=== PATIENT | male | born 1955 | race Caucasian/White ===

== ENCOUNTER 2019-01-10 10:44 | Inpatient (IN) | payer OTHER ==
[~2019-01-10] VITALS: Ht 170.2 cm; Wt 68.1 kg
[2019-01-10 10:47] VITALS: Ht 170.2 cm; Wt 68.1 kg
[2019-01-10] MEDS ORDERED: THIAMINE 100 MG TAB PO STA (11:02)
[2019-01-10] MEDS ORDERED: SOD CHLORIDE 0.9% 1,000 ML IV STA (11:02)
[2019-01-10] MEDS ORDERED: LORAZEPAM 2 MG INJ IV STA (11:02)
[2019-01-10] MEDS ORDERED: MULTIVITAMINS 10 ML, THIAMINE 100 MG, FOLIC ACID 1 MG, MAGNESIUM SULFATE 2 GM in SOD CH... IV ONE ×2 (11:30→16:30)
[2019-01-10] MEDS ORDERED: IBUP1TAB13 PO (12:02)
--- NOTE | 2019-01-10 12:03 | ERD ---
ER Documentation Chief Complaint Chief Complaint juan c @0230 this am, no prescribed medication HPI 63-year-old gentleman who presents to the emergency room with hallucinations. The patient has a history of alcohol abuse issues. He states that he has not been drinking for 3 days. The patient is having a tremor, agitation and having visual hallucinations at home. He is here with a family member who is concerned about the patient's well-being. The patient is tripping and falling on a more regular basis. He is unsure if he hit his head recently. He does describe some baseline shortness of breath with relation to his COPD but no exacerbation, no productive cough and no chest pressure. ROS All systems reviewed and are negative except as per history of present illness. Medications Home Meds Reported Medications Ibuprofen/Diphenhydramine Cit (Advil Pm Caplet) 1 Each Tablet, 2 EACH PO QHS, TAB 01/10/19 Allergies Allergies: Coded Allergies: No Known Allergy (Unverified , 01/10/19) FmHx Family History: No diabetes Physical Exam Vitals Vital Signs Date Temp Pulse Resp B/P (MAP) Pulse Ox O2 O2 Flow FiO2 Time Delivery Rate 01/10/19 131 18 131/78 99 Room Air 12:46 (95) High Flow 01/10/19 Nasal 12:23 Cannula 01/10/19 98.6 141 18 154/93 95 10:47 (113) Physical Exam General: Tremor, slight agitation, conversive Head: Normocephalic, atraumatic. Eyes: Pupils equally reactive, EOM intact ENT: Moist mucous membranes Neck: Supple, no lymphadenopathy Respiratory: Lungs clear bilaterally, no distress Cardiovascular: Tachycardia, no murmurs, rubs, or gallops Abdominal: Soft, non-tender, non-distended, no peritoneal signs : Deferred MSK: No edema, no unilateral swelling, 5/5 strength Neurologic: Alert and oriented, moving all extremities, normal speech, no focal weakness, no cerebellar signs, no asterixis Skin: No rash Psych: Normal mood Result Diagram: 01/10/19 1112 01/10/19 1112 Results 24 hrs Laboratory Tests Test 01/10/19 11:12 White Blood Count 9.4 10^3/ul Red Blood Count 4.65 10^6/ul Hemoglobin 16.6 g/dl Hematocrit 47.5 % Mean Corpuscular Volume 102.2 fl Mean Corpuscular Hemoglobin 35.7 pg Mean Corpuscular Hemoglobin Concent 34.9 g/dl Red Cell Distribution Width 13.2 % Platelet Count 42 10^3/UL Mean Platelet Volume fl Immature Granulocytes % 0.400 % Neutrophils % 78.3 % Segmented Neutrophils % (Manual) 70 % Band Neutrophils % (Manual) 3 % Lymphocytes % 11.3 % Lymphocytes % (Manual) 19 % Reactive Lymphocytes % (Manual) 1 % Monocytes % 8.8 % Monocytes % (Manual) 6 % Eosinophils % 0.9 % Eosinophils % (Manual) 1 % Basophils % 0.3 % Nucleated Red Blood Cells % 0.0 /100WBC Immature Granulocytes # 0.040 10^3/ul Neutrophils # 7.3 10^3/ul Neutrophils # (Manual) 6.6 10^3/ul Band Neutrophils # 0.2 10^3/ul Lymphocytes (Manual) 1.7 10^3/ul Lymphocytes # 1.1 10^3/ul Reactive Lymphocytes # 0.0 10^3/ul Monocytes # 0.8 10^3/ul Monocytes # (Manual) 0.5 10^3/ul Eosinophils # 0.1 10^3/ul Basophils # 0.0 10^3/ul Nucleated Red Blood Cells # 0.0 10^3/ul Pathologist Review (Hematology) YES Platelet Estimate SIG DECREASED Platelet Morphology Comment @See below Polychromasia 1+ Hypochromasia 1+ Poikilocytosis 1+ Anisocytosis 1+ Macrocytosis 1+ Target Cells 1+ Prothrombin Time 12.8 Sec Prothrombin Time Ratio 1.0 INR International Normalized Ratio 0.95 Activated Partial Thromboplast Time 23.1 Sec Sodium Level 140 mmol/L Potassium Level 4.2 mmol/L Chloride Level 98 mmol/L Carbon Dioxide Level 24 mmol/L Anion Gap 18 Blood Urea Nitrogen 33 mg/dl Creatinine 1.80 mg/dl Est Glomerular Filtrat Rate mL/min 38 mL/min Glucose Level 116 mg/dl Calcium Level 10.3 mg/dl Total Bilirubin 1.6 mg/dl Direct Bilirubin 0.00 mg/dl Indirect Bilirubin 1.6 mg/dl Aspartate Amino Transf (AST/SGOT) 236 IU/L Alanine Aminotransferase (ALT/SGPT) 107 IU/L Alkaline Phosphatase 84 IU/L Total Protein 8.2 g/dl Albumin 4.6 g/dl Globulin 3.60 g/dl Albumin/Globulin Ratio 1.27 Ethyl Alcohol Level < 10.0 mg/dl Current Medications Medications Dose Sig/Peter Start Time Status Last (Trade) Ordered Route PRN Stop Time Admin Dose Reason Admin Lorazepam 1 mg ONCE STAT 01/10/19 DC 01/10/19 (Ativan) IV 11:02 01/10/19 11:02 11:04 Sodium 1,000 ml @ Q1H STAT 01/10/19 DC 01/10/19 Chloride 1,000 mls/hr IV 11:02 01/10/19 11:02 12:01 Thiamine 100 mg ONCE STAT 01/10/19 DC 01/10/19 HCl PO 11:02 01/10/19 11:02 (Vitamin B1) 11:04 1,000 ml @ Q2H ONCE 01/10/19 DC 01/10/19 Multivitamins 500 mls/hr IV 11:30 01/10/19 12:09 10 13:29 ml/Thiamine HCl 100 mg/Folic Acid 1 mg/Magnesium Sulfate 2 gm/ Sodium Chloride Lorazepam 1 mg ONCE ONCE 01/10/19 DC 01/10/19 (Ativan) IV 13:00 01/10/19 12:59 13:01 Lorazepam 1 mg ONCE ONCE 01/10/19 (Ativan) IV 14:00 01/10/19 14:01 Ondansetron 4 mg ER BRIDGE 01/10/19 HCl (Zofran PRN IV 14:00 01/11/19 Inj) NAUSEA/VOMITI 13:59 NG 650 mg ER BRIDGE 01/10/19 Acetaminophen PRN PO 14:00 01/11/19 (Tylenol .MILD PAIN 13:59 Tab) 1-3 OR TEMP Procedures/MDM EKG, MONITORS, & DIAGNOSTIC IMAGING: EKG: I reviewed and interpreted a 12-lead EKG. Rhythm: Sinus tachycardia ST Changes: No contiguous ST segment elevations T waves: No contiguous T wave inversions Impression: [No evidence of acute cardiac ischemia] CT brain: IMPRESSION: 1. No evidence of acute intracranial pathology. 2. Mild volume loss, with minimal chronic small vessel ischemic changes. Chest x-ray: IMPRESSION: Subtle nondisplaced fracture through the posterior lateral right eighth rib. Subsegmental atelectasis in both lungs. Elevated right hemidiaphragm. RPTAT: AA LAB INTERPRETATION: I reviewed the laboratory testing and it shows mild renal insufficiency, slight hyperbilirubinemia and transaminitis consistent with the patient's alcohol abuse MEDICAL DECISION MAKING: The patient presents with clinical signs and symptoms consistent with acute alcohol withdrawal. I am concerned for potentially meeting the threshold of W ernicke's encephalopathy versus delirium tremens because of the patient's hallucinations. Because of the patient's age I do recommend inpatient hospitalization for further treatment including IV hydration, multivitamin, dextrose solution and benzodiazepines. Patient is high risk for complications such as seizure, delirium tremens and decompensation. ER COURSE: * Patient given IV fluids, multivitamin, banana bag, Ativan * The patient has required repeat examinations, repeat dosing of benzodiazepine. This is consistent with the patient's level of withdrawal. He does not require a benzodiazepine drip at this time. He continues to protect his airway. The patient is safe for telemetry admission at this time. Heart rate is still tachycardic in the 120 range but improving with fluids and be nzodiazepine treatment. CONSULTATION: [None] DISPOSITION PLAN: Accepting care team and consultations: I discussed the current laboratory data, diagnostic imaging and emergency care provided. Admitting team: Panel team was notified via [employer] Admitting team indication: Insurance directed Critical Care Note: Total time: 30 minutes Indication/Organ System Threat: Severe alcohol withdrawal with delirium I spent the above amount of critical care time with the patient, not including billable procedures. This included chart review, consultations, repeat bedside evaluations, and titration of appropriate medications to prevent cardiopulmonary or respiratory collapse. Departure Diagnosis: Primary Impression: Acute hyperactive alcohol withdrawal delirium Additional Impressions: Alcohol abuse Acute renal insufficiency Transaminitis Dehydration, moderate Condition: TERESA Pandey MD Jan 10, 2019 12:03
[2019-01-10] MEDS ORDERED: LORAZEPAM 2 MG INJ IV ONE ×2 (13:00→14:00)
[2019-01-10] MEDS ORDERED: ONDANSETRON 4 MG INJ IV PRN ×2 (14:00→15:00)
[2019-01-10] MEDS ORDERED: ACETAMINOPHEN 325 MG TAB PO PRN (14:00)
[2019-01-10] MEDS ORDERED: HALOPERIDOL 5 MG INJ IM ONE (14:30)
[2019-01-10] MEDS ORDERED: DIAZEPAM 5 MG/ML SYG IV ONE ×7 (14:30→18:00)
--- NOTE | 2019-01-10 14:52 | HP ---
Date/Time of Note Date/Time of Note DATE: 01/10/19 TIME: 14:40 Assessment/Plan VTE Prophylaxis SCD applied (from Nsg): Yes Pharmacological prophylaxis: NA/contraindicated Pharm contraindication: low risk/ambulating Lines/Catheters IV Catheter Type (from Nrsg): Saline Lock Assessment/Plan Assessment/Plan 63 yo man presents in alcohol withdrawal #EtOH withdrawal - Last drink 3 days ago, unknown how much was drinking before - Requiring frequent Ativan and Valium IV in the ED - Will continue prn Ativan and start librium taper. - Banana bag x1 - Currently very high benzo requirements, will admit to ICU. #Macrocytosis - Not associated with anemia - Will check folate and B12 #Thrombocytopenia - Likely bone marrow suppression from alcohol use, but other cell lines not suppressed. - Will check abd US for cirrhosis or splenomegaly. #R rib fracture? - Pain control DVT: SCDs GI: None Result Diagram: 01/10/19 1112 01/10/19 1112 HPI/ROS Admit Date/Time Admit Date/Time 10 January 2019 Hx of Present Illness Mr. Joseph is a 63 yo man brought in to the ED for tremors and visual hallucinations. Patient is Haitian speaking but hard to understand and there is no family to provide collateral; so history is limited. He was in his usual state of health until about 3 days ago, when he completely quit drinking. Unclear how much he was drinking prior. For past few days he's had tremors and visual hallucinations. Apparently he has been tripping and falling on a more regular basis. He is unsure if he hit his head recently. He also does report some shortness of breath and possible history of COPD. In the ED he was tachy to 140s, normal sinus. BP 154/93, breathing comfortably room air. Labs notable for thrombocytopenia to 42 and macrocytosis, MCV 102, but no anemia. CXR showed possible R 8th rib fracture, CTH negative. ROS Subjective hx not possible: pt critical PMH/Family/Social Past Medical History Unknown Medications Current Medications Ondansetron HCl (Zofran Inj) 4 mg ER BRIDGE PRN IV NAUSEA/VOMITING; Start 01/10 at 14:00; Stop 01/11/19 at 13:59 Acetaminophen (Tylenol Tab) 650 mg ER BRIDGE PRN PO .MILD PAIN 1-3 OR TEMP; Start 01/10/19 at 14:00; Stop 01/11/19 at 13:59 Sodium Chloride 1,000 ml @ 80 mls/hr [id number] IV ; Start 01/10/19 at 14:32; Status UNV IV Flush (NS 3 ml) 3 ml PER PROTOCOL IV ; Start 01/10/19 at 15:00; Status UNV Ondansetron HCl (Zofran Inj) 4 mg Q6H PRN IV NAUSEA/VOMITING; Start 01/10/19 at 15:00; Status UNV Acetaminophen (Tylenol Tab) 650 mg Q6H PRN PO .PAIN 1-3 OR TEMP; Start 01/10/19 at 15:00; Status UNV Pantoprazole (Protonix Tab) 40 mg DAILY@06 PO ; Start 01/11/19 at 06:00; Status UNV Lorazepam (Ativan) 2 mg Q1H PRN IV alcohol withdrawal symptoms; Start 01/10/19 at 15:00; Status UNV Chlordiazepoxide (Librium) 50 mg QID PO ; Start 01/10/19 at 17:00; Status UNV Multivitamins 10 ml/Thiamine HCl 100 mg/Folic Acid 1 mg/Magnesium Sulfate 2 gm/ Sodium Chloride 1,000 ml @ 500 mls/hr Q2H ONCE IV ; Start 01/10/19 at 15:00; Stop 01/10/19 at 16:59; Status UNV Coded Allergies: No Known Allergy (Unverified , 01/10/19) Past Surgical History Past Surgical Hx: appendectomy Social History Alcohol Use: heavy Smoking Status: Never smoker Drug Use: none Exam/Review of Systems Vital Signs Vitals Vital Signs Date Temp Pulse Resp B/P (MAP) Pulse Ox O2 O2 Flow FiO2 Time Delivery Rate 01/10/19 123 18 141/71 100 Room Air 14:00 (94) High Flow 01/10/19 98.6 10:47 Exam Exam Gen: Well developed man restrained to gurney, agitated appearing Eyes: PERRL, no icterus HEENT: No tongue fasciculations, clear oropharynx, moist mucous membranes Neck: Supple, no lymphadenopathy Card: Regular rate and rhythm, no murmurs Pulm: Clear to auscultation bilaterally Abd: Soft, nontender throughout, nondistended. No hepatosplenomegaly. Ext: No cyanosis/clubbing/edema Skin: warm, dry, well perfused. KARINA CHAWLA MD Jan 10, 2019 14:51
[2019-01-10] MEDS ORDERED: ALBUTEROL/IPRATROPIUM (NEB) 3 ML AMP HHN PRN (15:00)
[2019-01-10] MEDS ORDERED: NACL 0.9% 3 ML SYG IV SCH (15:00)
[2019-01-10] MEDS: CHLORDIAZEPOXIDE 25 MG CAP PO SCH ×2 (17:00→21:00)
[2019-01-10] MEDS ORDERED: CHLORDIAZEPOXIDE 25 MG CAP PO SCH (17:00)
[2019-01-10] MEDS: SOD CHLORIDE 0.9% 1,000 ML IV SCH (19:34)
[2019-01-11] VITALS (13 sets, daily range): BP systolic 111–153; BP diastolic 76–92; PULSE 77–123; RESP 18–20
[2019-01-11] MEDS ORDERED: CHLORDIAZEPOXIDE 25 MG CAP PO ONE (00:30)
[2019-01-11] MEDS ORDERED: DIAZEPAM 5 MG/ML SYG IV ONE ×2 (00:30)
[2019-01-11] MEDS ORDERED: DIAZEPAM 5 MG/ML SYG IV PRN ×2 (03:30→17:30)
[2019-01-11] MEDS: SOD CHLORIDE 0.9% 1,000 ML IV SCH ×2 (06:00→15:32)
[2019-01-11] MEDS: PANTOPRAZOLE (EC) 40 MG TAB PO SCH (06:27)
[2019-01-11] MEDS: LORAZEPAM 2 MG INJ IV PRN ×6 (07:44→21:30)
[2019-01-11] MEDS ORDERED: THIAMINE 200 MG INJ IV SCH (10:00)
[2019-01-11] MEDS: CHLORDIAZEPOXIDE 25 MG CAP PO SCH ×3 (10:01→20:12)
--- NOTE | 2019-01-11 10:01 | PN ---
Date/Time of Note Date/Time of Note DATE: 01/11/19 TIME: 09:59 Assessment/Plan VTE Prophylaxis SCD applied (from Nsg): Yes Pharmacological prophylaxis: NA/contraindicated Pharm contraindication: low risk/ambulating Lines/Catheters IV Catheter Type (from Nrsg): Saline Lock Assessment/Plan Assessment/Plan 63 yo man presents in alcohol withdrawal #EtOH withdrawal - Last drink 3 days ago, unknown how much was drinking before - Requiring frequent Ativan and Valium IV in the ED - Will continue prn Ativan and start librium taper. - Banana bag x1 - Currently very high benzo requirements, will admit to ICU. - Low blood sugar, will start aggressive thiamine replacement in anticipation of Wernicke's. #Macrocytosis - Not associated with anemia - Now folate and B12 replete. #Thrombocytopenia - Likely bone marrow suppression from alcohol use, but other cell lines not suppressed. - Coarse liver on US, may have early cirrhosis. #R rib fracture? - Pain control DVT: SCDs GI: None Result Diagram: 01/11/19 0753 01/11/19 0753 Subjective 24 Hr Interval Summary Free Text/Dictation No acute overnight events. This morning getting out of bed and trying to pull out IVs, so placed on soft restraints again. Exam/Review of Systems Exam Vitals Vital Signs Date Temp Pulse Resp B/P (MAP) Pulse Ox O2 O2 Flow FiO2 Time Delivery Rate 01/11/19 109 18 122/84 90 Room Air 07:58 (97) 01/11/19 2.0 06:05 01/11/19 98.8 05:56 Intake and Output 01/10/19 01/10/19 01/11/19 1515:00 23:00 07:00 IntakeIntake Total 2000 ml 1000 ml 200 ml OutputOutput Total 300 ml BalanceBalance 2000 ml 1000 ml -100 ml Exam Gen: Well developed man restrained to gurney, agitated appearing Eyes: PERRL, no icterus HEENT: No tongue fasciculations, clear oropharynx, moist mucous membranes Neck: Supple, no lymphadenopathy Card: Regular rate and rhythm, no murmurs Pulm: Clear to auscultation bilaterally Abd: Soft, nontender throughout, nondistended. No hepatosplenomegaly. Ext: No cyanosis/clubbing/edema Skin: warm, dry, well perfused. Neuro: Slurred speech, mild hand tremor, no tongue fasciculations. Results Results 24hrs Laboratory Tests Test 01/10/19 11:12 01/11/19 00:32 01/11/19 07:53 White Blood Count 9.4 7.9 Red Blood Count 4.65 L 4.00 L Hemoglobin 16.6 14.2 Hematocrit 47.5 41.5 L Mean Corpuscular Volume 102.2 H 103.8 H Mean Corpuscular Hemoglobin 35.7 H 35.5 H Mean Corpuscular Hemoglobin Concent 34.9 34.2 Red Cell Distribution Width 13.2 13.2 Platelet Count 42 L 33 #L Mean Platelet Volume Immature Granulocytes % 0.400 0.500 H Neutrophils % 78.3 H 75.4 Segmented Neutrophils % (Manual) 70 Band Neutrophils % (Manual) 3 Lymphocytes % 11.3 L 12.7 L Lymphocytes % (Manual) 19 Reactive Lymphocytes % (Manual) 1 H Monocytes % 8.8 9.1 Monocytes % (Manual) 6 Eosinophils % 0.9 2.0 Eosinophils % (Manual) 1 Basophils % 0.3 0.3 Nucleated Red Blood Cells % 0.0 0.0 Immature Granulocytes # 0.040 H 0.040 H Neutrophils # 7.3 6.0 Neutrophils # (Manual) 6.6 Band Neutrophils # 0.2 Lymphocytes (Manual) 1.7 Lymphocytes # 1.1 1.0 Reactive Lymphocytes # 0.0 Monocytes # 0.8 0.7 Monocytes # (Manual) 0.5 Eosinophils # 0.1 0.2 Basophils # 0.0 0.0 Nucleated Red Blood Cells # 0.0 0.0 Pathologist Review (Hematology) YES Platelet Estimate SIG DECREASED Platelet Morphology Comment @See below Polychromasia 1+ Hypochromasia 1+ Poikilocytosis 1+ Anisocytosis 1+ Macrocytosis 1+ Target Cells 1+ Prothrombin Time 12.8 Prothrombin Time Ratio 1.0 INR International Normalized Ratio 0.95 Activated Partial Thromboplast Time 23.1 Sodium Level 140 139 Potassium Level 4.2 3.3 L Chloride Level 98 103 Carbon Dioxide Level 24 21 Anion Gap 18 H 15 H Blood Urea Nitrogen 33 H 20 # Creatinine 1.80 H 0.95 Est Glomerular Filtrat Rate mL/min 38 L > 60 Glucose Level 116 66 #L Calcium Level 10.3 H 8.8 Total Bilirubin 1.6 H 1.4 H Direct Bilirubin 0.00 0.00 Indirect Bilirubin 1.6 H 1.4 H Aspartate Amino Transf (AST/SGOT) 236 H 268 H Alanine Aminotransferase (ALT/SGPT) 107 H 93 H Alkaline Phosphatase 84 60 Total Protein 8.2 H 6.4 # Albumin 4.6 3.6 # Globulin 3.60 H 2.80 Albumin/Globulin Ratio 1.27 1.28 Vitamin B12 Level 438 Folate 13.2 Ethyl Alcohol Level < 10.0 H Bedside Glucose 75 Hemoglobin A1c 4.8 Phosphorus Level 1.4 L Magnesium Level 1.6 L Thyroid Stimulating Hormone (TSH) 0.973 Medications Medication Current Medications Ondansetron HCl (Zofran Inj) 4 mg ER BRIDGE PRN IV NAUSEA/VOMITING; Start 01/10/19 at 14:00; Stop 01/11/19 at 13:59 Acetaminophen (Tylenol Tab) 650 mg ER BRIDGE PRN PO .MILD PAIN 1-3 OR TEMP; Start 01/10/19 at 14:00; Stop 01/11/19 at 13:59 Sodium Chloride 1,000 ml @ 80 mls/hr [id number] IV Last administered on 01/11/19at 06:00; Admin Dose 80 MLS/HR; Start 01/10/19 at 14:32 IV Flush (NS 3 ml) 3 ml PER PROTOCOL IV ; Start 01/10/19 at 15:00 Ondansetron HCl (Zofran Inj) 4 mg Q6H PRN IV NAUSEA/VOMITING; Start 01/10/19 at 15:00 Acetaminophen (Tylenol Tab) 650 mg Q6H PRN PO .PAIN 1-3 OR TEMP; Start 01/10/19 at 15:00 Pantoprazole (Protonix Tab) 40 mg DAILY@06 PO Last administered on 01/11/19at 06:27; Admin Dose 40 MG; Start 01/11/19 at 06:00 Lorazepam (Ativan) 2 mg Q1H PRN IV alcohol withdrawal symptoms Last administered on 01/11/19at 07:44; Admin Dose 2 MG; Start 01/10/19 at 15:00 Albuterol/ Ipratropium (Duoneb) 3 ml Q4H RESP THERAPY PRN HHN SHORTNESS OF BREATH; Start 01/10/19 at 15:00 Chlordiazepoxide (Librium) 50 mg TID PO ; Start 01/11/19 at 09:00; Stop 01/11/19 at 23:45 Chlordiazepoxide (Librium) 50 mg BID PO ; Start 01/12/19 at 09:00; Stop 01/12/19 a t 23:45 Chlordiazepoxide (Librium) 25 mg BID PO ; Start 01/13/19 at 09:00; Stop 01/13/19 at 23:45 Diazepam (Valium) 5 mg Q4H PRN IV severe withdrawl; Start 01/11/19 at 03:30 Magnesium Sulfate 3 gm/Dextrose 106 ml @ 35.333 mls/ hr ONCE ONCE IVPB ; Start 01/11/19 at 11:00; Stop 01/11/19 at 13:59 Potassium Phosphate 30 mm/ Sodium Chloride 260 ml @ 43.333 mls/ hr ONCE ONCE IVPB ; Start 01/11/19 at 11:00; Stop 01/11/19 at 16:59 Thiamine HCl (Vitamin B1) 500 mg Q8H IV ; Start 01/11/19 at 10:00; Stop 01/13/19 at 09:00; Status UNV KARINA CHAWLA MD Jan 11, 2019 10:01
[2019-01-11] MEDS ORDERED: POTASSIUM PHOSPHATE 30 MM in SOD CHLORIDE 0.9% 250 ML IVPB ONE (11:00)
[2019-01-11] MEDS: THIAMINE 500 MG in SOD CHLORIDE 0.9% 250 ML IV SCH ×2 (11:00→20:11)
[2019-01-11] MEDS ORDERED: MAGNESIUM SULFATE 3 GM in DEXTROSE 5% 100 ML IVPB ONE (11:00)
[2019-01-12] VITALS (16 sets, daily range): BP systolic 123–161; BP diastolic 66–92; PULSE 90–122; RESP 18–22
[2019-01-12] MEDS: LORAZEPAM 2 MG INJ IV PRN ×3 (01:09→03:35)
[2019-01-12] MEDS: THIAMINE 500 MG in SOD CHLORIDE 0.9% 250 ML IV SCH ×3 (03:35→18:25)
[2019-01-12] MEDS: SOD CHLORIDE 0.9% 1,000 ML IV SCH ×2 (03:42→18:25)
[2019-01-12] MEDS: ACETAMINOPHEN 325 MG TAB PO PRN ×2 (05:58→20:08)
[2019-01-12] MEDS: PANTOPRAZOLE (EC) 40 MG TAB PO SCH (05:59)
[2019-01-12] MEDS: CHLORDIAZEPOXIDE 25 MG CAP PO SCH ×2 (08:54→20:08)
--- NOTE | 2019-01-12 16:51 | PN ---
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 #Macrocytosis - Not associated with anemia - Now folate and B12 replete. #Thrombocytopenia - Likely bone marrow suppression from alcohol use, but other cell lines not suppressed. - Coarse liver on US, may have early cirrhosis. #R rib fracture? - Pain control DVT: SCDs GI: None Result Diagram: 01/12/19 1015 01/12/19 1015 Subjective 24 Hr Interval Summary Free Text/Dictation Required very frequent Ativan overnight. On my exams today he is tachycardic but sleeping. Restraints off, sitter at bedside. Exam/Review of Systems Exam Vitals Vital Signs Date Temp Pulse Resp B/P (MAP) Pulse Ox O2 O2 Flow FiO2 Time Delivery Rate 01/12/19 98.7 98 20 129/73 91 Nasal 16:11 (91) Cannula 01/12/19 2.0 15:50 Intake and Output 01/11/19 01/11/19 01/12/19 1515:00 23:00 07:00 IntakeIntake Total 655 ml 1505 ml OutputOutput Total 1000 ml BalanceBalance 655 ml 505 ml Exam Gen: Well developed man in bed sleeping. Eyes: PERRL, no icterus HEENT: No tongue fasciculations, clear oropharynx, moist mucous membranes Neck: Supple, no lymphadenopathy Card: Regular rate and rhythm, no murmurs Pulm: Clear to auscultation bilaterally Abd: Soft, nontender throughout, nondistended. No hepatosplenomegaly. Ext: No cyanosis/clubbing/edema Skin: warm, dry, well perfused. Results Results 24hrs Laboratory Tests Test 01/12/19 10:15 White Blood Count 9.3 Red Blood Count 3.96 L Hemoglobin 14.2 Hematocrit 41.0 L Mean Corpuscular Volume 103.5 H Mean Corpuscular Hemoglobin 35.9 H Mean Corpuscular Hemoglobin Concent 34.6 Red Cell Distribution Width 13.0 Platelet Count 36 L Mean Platelet Volume Immature Granulocytes % 0.500 H Neutrophils % 76.2 Lymphocytes % 12.2 L Monocytes % 9.5 Eosinophils % 1.4 Basophils % 0.2 Nucleated Red Blood Cells % 0.0 Immature Granulocytes # 0.050 H Neutrophils # 7.1 Lymphocytes # 1.1 Monocytes # 0.9 Eosinophils # 0.1 Basophils # 0.0 Nucleated Red Blood Cells # 0.0 Sodium Level 138 Potassium Level 3.6 Chloride Level 104 Carbon Dioxide Level 24 Anion Gap 10 # Blood Urea Nitrogen 12 Creatinine 0.71 Est Glomerular Filtrat Rate mL/min > 60 Glucose Level 103 Calcium Level 8.4 Phosphorus Level 3.4 # Magnesium Level 1.4 L Medications Medication Current Medications Sodium Chloride 1,000 ml @ 80 mls/hr [id number] IV Last administered on 01/12/19at 03:42; Admin Dose 80 MLS/HR; Start 01/10/19 at 14:32 IV Flush (NS 3 ml) 3 ml PER PROTOCOL IV ; Start 01/10/19 at 15:00 Ondansetron HCl (Zofran Inj) 4 mg Q6H PRN IV NAUSEA/VOMITING; Start 01/10/19 at 15:00 Acetaminophen (Tylenol Tab) 650 mg Q6H PRN PO .PAIN 1-3 OR TEMP Last administered on 01/12/19at 05:58; Admin Dose 650 MG; Start 01/10/19 at 15:00 Pantoprazole (Protonix Tab) 40 mg DAILY@06 PO Last administered on 01/12/19at 05:59; Admin Dose 40 MG; Start 01/11/19 at 06:00 Lorazepam (Ativan) 2 mg Q1H PRN IV alcohol withdrawal symptoms Last administered on 01/12/19at 03:35; Admin Dose 2 MG; Start 01/10/19 at 15:00 Albuterol/ Ipratropium (Duoneb) 3 ml Q4H RESP THERAPY PRN HHN SHORTNESS OF BREATH; Start 01/10/19 at 15:00 Chlordiazepoxide (Librium) 50 mg BID PO Last administered on 01/12/19at 08:54; Admin Dose 50 MG; Start 01/12/19 at 09:00; Stop 01/12/19 at 23:45 Chlordiazepoxide (Librium) 25 mg BID PO ; Start 01/13/19 at 09:00; Stop 01/13/19 at 23:45 Thiamine HCl 500 mg/Sodium Chloride 255 ml @ 170 mls/hr Q8H IV Last administered on 01/12/19at 13:02; Admin Dose 170 MLS/HR; Start 01/11/19 at 11:00; Stop 01/13/19 at 10:00 Diazepam (Valium) 10 mg Q1H PRN IV severe withdrawl; Start 01/11/19 at 17:30 KARINA CHAWLA MD Jan 12, 2019 16:51
[2019-01-13] VITALS (10 sets, daily range): BP systolic 111–131; BP diastolic 71–87; PULSE 93–110; RESP 17–20
[2019-01-13] MEDS: THIAMINE 500 MG in SOD CHLORIDE 0.9% 250 ML IV SCH (02:05)
[2019-01-13] MEDS: HYDROCODONE/APAP (5/325) TAB PO PRN ×4 (03:52→21:11)
[2019-01-13] MEDS: SOD CHLORIDE 0.9% 1,000 ML IV SCH ×3 (04:42→21:37)
[2019-01-13] MEDS: PANTOPRAZOLE (EC) 40 MG TAB PO SCH (05:30)
[2019-01-13] MEDS: CHLORDIAZEPOXIDE 25 MG CAP PO SCH ×2 (08:35→21:12)
[2019-01-13] MEDS: ACETAMINOPHEN 325 MG TAB PO PRN (09:11)
[2019-01-13] MEDS ORDERED: POTASSIUM CHLORIDE (SR) 20 MEQ TAB PO STA (11:35)
--- NOTE | 2019-01-13 11:52 | PN ---
Date/Time of Note Date/Time of Note DATE: 01/13/19 TIME: 11:49 Assessment/Plan VTE Prophylaxis Risk score (from Nsg)>0 risk: 5 SCD applied (from Nsg): Yes Pharmacological prophylaxis: other Lines/Catheters IV Catheter Type (from Nrsg): Peripheral IV Urinary Cath still in place: No Assessment/Plan Hospital Course S: Patient off restraints since yesterday, seen by social sciences lecturer this morning. O: VS - see below PE: Gen: Well developed man in bed sleeping. Eyes: PERRL, no icterus HEENT: No tongue fasciculations, clear oropharynx, moist mucous membranes Neck: Supple, no lymphadenopathy Card: Regular rate and rhythm, no murmurs Pulm: Clear to auscultation bilaterally Abd: Soft, nontender throughout, nondistended. No hepatosplenomegaly. Ext: No cyanosis/clubbing/edema Skin: warm, dry, well perfused. Assessment/Plan: 63 yo man presents in alcohol withdrawal. 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 #Macrocytosis- Not associated with anemia- Now folate and B12 replete. -Monitor #Thrombocytopenia- Likely bone marrow suppression from alcohol use, but other cell lines not suppressed- Coarse liver on US, may have early cirrhosis. -Monitor #R rib fracture? - Pain control DVT: SCDs GI: None Result Diagram: 01/13/19 0544 01/13/19 0544 Results 24hrs Laboratory Tests Test 01/13/19 05:44 White Blood Count 7.4 # Red Blood Count 3.67 L Hemoglobin 13.1 L Hematocrit 37.7 L Mean Corpuscular Volume 102.7 H Mean Corpuscular Hemoglobin 35.7 H Mean Corpuscular Hemoglobin Concent 34.7 Red Cell Distribution Width 12.8 Platelet Count 46 #L Mean Platelet Volume Immature Granulocytes % 0.400 Neutrophils % 69.0 Lymphocytes % 14.6 L Monocytes % 12.7 H Eosinophils % 3.2 Basophils % 0.1 Nucleated Red Blood Cells % 0.0 Immature Granulocytes # 0.030 Neutrophils # 5.1 Lymphocytes # 1.1 Monocytes # 0.9 Eosinophils # 0.2 Basophils # 0.0 Nucleated Red Blood Cells # 0.0 Sodium Level 136 Potassium Level 3.2 L Chloride Level 107 Carbon Dioxide Level 24 Anion Gap 5 Blood Urea Nitrogen 12 Creatinine 0.75 Est Glomerular Filtrat Rate mL/min > 60 Glucose Level 111 Calcium Level 8.3 L Phosphorus Level 2.8 Magnesium Level 1.3 L Total Bilirubin 1.1 Direct Bilirubin 0.00 Indirect Bilirubin 1.1 Aspartate Amino Transf (AST/SGOT) 141 H Alanine Aminotransferase (ALT/SGPT) 85 H Alkaline Phosphatase 54 Total Protein 5.9 L Albumin 3.0 L Globulin 2.90 Albumin/Globulin Ratio 1.03 Exam/Review of Systems Exam Vitals Vital Signs Date Temp Pulse Resp B/P (MAP) Pulse Ox O2 O2 Flow FiO2 Time Delivery Rate 01/13/19 98.0 98 20 119/76 96 Nasal 11:01 (90) Cannula 01/13/19 2.0 08:00 Intake and Output 01/12/19 01/12/19 01/13/19 1515:00 23:00 07:00 IntakeIntake Total 855 ml 555 ml OutputOutput Total 850 ml 650 ml BalanceBalance 5 ml -95 ml Results Results 24hrs Laboratory Tests Test 01/13/19 05:44 White Blood Count 7.4 # Red Blood Count 3.67 L Hemoglobin 13.1 L Hematocrit 37.7 L Mean Corpuscular Volume 102.7 H Mean Corpuscular Hemoglobin 35.7 H Mean Corpuscular Hemoglobin Concent 34.7 Red Cell Distribution Width 12.8 Platelet Count 46 #L Mean Platelet Volume Immature Granulocytes % 0.400 Neutrophils % 69.0 Lymphocytes % 14.6 L Monocytes % 12.7 H Eosinophils % 3.2 Basophils % 0.1 Nucleated Red Blood Cells % 0.0 Immature Granulocytes # 0.030 Neutrophils # 5.1 Lymphocytes # 1.1 Monocytes # 0.9 Eosinophils # 0.2 Basophils # 0.0 Nucleated Red Blood Cells # 0.0 Sodium Level 136 Potassium Level 3.2 L Chloride Level 107 Carbon Dioxide Level 24 Anion Gap 5 Blood Urea Nitrogen 12 Creatinine 0.75 Est Glomerular Filtrat Rate mL/min > 60 Glucose Level 111 Calcium Level 8.3 L Phosphorus Level 2.8 Magnesium Level 1.3 L Total Bilirubin 1.1 Direct Bilirubin 0.00 Indirect Bilirubin 1.1 Aspartate Amino Transf (AST/SGOT) 141 H Alanine Aminotransferase (ALT/SGPT) 85 H Alkaline Phosphatase 54 Total Protein 5.9 L Albumin 3.0 L Globulin 2.90 Albumin/Globulin Ratio 1.03 Medications Medication Current Medications Sodium Chloride 1,000 ml @ 80 mls/hr [id number] IV Last administered on 01/12/19 18:25; Admin Dose 80 MLS/HR; Start 01/10/19 at 14:32 IV Flush (NS 3 ml) 3 ml PER PROTOCOL IV ; Start 01/10/19 at 15:00 Ondansetron HCl (Zofran Inj) 4 mg Q6H PRN IV NAUSEA/VOMITING; Start 01/10/19 at 15:00 Acetaminophen (Tylenol Tab) 650 mg Q6H PRN PO .PAIN 1-3 OR TEMP Last administered on 01/13/19at 09:11; Admin Dose 650 MG; Start 01/10/19 at 15:00 Pantoprazole (Protonix Tab) 40 mg DAILY@06 PO Last administered on 01/13/19 05: 30; Admin Dose 40 MG; Start 01/11/19 at 06:00 Lorazepam (Ativan) 2 mg Q1H PRN IV alcohol withdrawal symptoms Last administered on 01/12/19 03:35; Admin Dose 2 MG; Start 01/10/19 at 15:00 Albuterol/ Ipratropium (Duoneb) 3 ml Q4H RESP THERAPY PRN HHN SHORTNESS OF BREATH; Start 01/10/19 at 15:00 Chlordiazepoxide (Librium) 25 mg BID PO Last administered on 01/13/19at 08:35; Admin Dose 25 MG; Start 01/13/19 at 09:00; Stop 01/13/19 at 23:45 Diazepam (Valium) 10 mg Q1H PRN IV severe withdrawl; Start 01/11/19 at 17:30 Acetaminophen/ Hydrocodone Bitart ([place] (5/325)) 1 tab Q6H PRN PO MODERATE PAIN LEVEL 4-6 Last administered on 01/13/19at 10:22; Admin Dose 1 TAB; Start 01/13/19 at 04:00 Magnesium Sulfate 3 gm/Dextrose 106 ml @ 35.333 mls/ hr ONCE ONCE IVPB ; Start 01/13/19 at 12:30; Stop 01/13/19 at 15:29 ANGELITA ANGULO STerence Jan 13, 2019 11:52
[2019-01-13] MEDS ORDERED: MAGNESIUM SULFATE 3 GM in DEXTROSE 5% 100 ML IVPB ONE (12:30)
[2019-01-13] MEDS: LORAZEPAM 2 MG INJ IV PRN (21:39)
[2019-01-14 01:48] VITALS: BP 144/79; PULSE 99; RESP 18
[2019-01-14] MEDS: PANTOPRAZOLE (EC) 40 MG TAB PO SCH (06:41)
[2019-01-14 07:55] VITALS: BP 130/74; PULSE 98; RESP 20
[2019-01-14] MEDS: SOD CHLORIDE 0.9% 1,000 ML IV SCH (10:57)
[2019-01-14] MEDS: LORAZEPAM 2 MG INJ IV PRN ×4 (10:57→20:34)
[2019-01-14] MEDS: HYDROCODONE/APAP (5/325) TAB PO PRN (11:40)
--- NOTE | 2019-01-14 12:00 | PN ---
Date/Time of Note Date/Time of Note DATE: 01/14/19 TIME: 11:59 Assessment/Plan VTE Prophylaxis Risk score (from Ns)>0 risk: 3 SCD applied (from Nsg): Yes Pharmacological prophylaxis: other Lines/Catheters IV Catheter Type (from Nrsg): Peripheral IV Urinary Cath still in place: No Assessment/Plan Hospital Course S: Patient still with occasional withdrawal symptoms including tremors and shakiness. Seen by physical therapy team earlier today. O: VS - see below PE: Gen: Well developed man, lying in bed, no acute distress Eyes: PERRL, no icterus HEENT: No tongue fasciculations, clear oropharynx, moist mucous membranes Neck: Supple, no lymphadenopathy Card: Regular rate and rhythm, no murmurs Pulm: Clear to auscultation bilaterally Abd: Soft, nontender throughout, nondistended. No hepatosplenomegaly. Ext: No cyanosis/clubbing/edema Neuro: No focal deficits Assessment/Plan: 63 yo man presents in alcohol withdrawal. 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 -Librium, and Ativan as needed #Macrocytosis- Not associated with anemia- Now folate and B12 replete. -Monitor #Thrombocytopenia- Likely bone marrow suppression from alcohol use, but other cell lines not suppressed- Coarse liver on US, may have early cirrhosis. -Monitor #R rib fracture? - Pain control DVT: SCDs GI: None Result Diagram: 01/14/196 01/14/196 Results 24hrs Laboratory Tests Test 01/14/19 04:46 White Blood Count 7.0 Red Blood Count 3.73 L Hemoglobin 13.2 L Hematocrit 38.6 L Mean Corpuscular Volume 103.5 H Mean Corpuscular Hemoglobin 35.4 H Mean Corpuscular Hemoglobin Concent 34.2 Red Cell Distribution Width 12.8 Platelet Count 84 #L Mean Platelet Volume 13.3 H Immature Granulocytes % 0.300 Neutrophils % 65.7 Lymphocytes % 15.3 Monocytes % 15.5 H Eosinophils % 2.9 Basophils % 0.3 Nucleated Red Blood Cells % 0.0 Immature Granulocytes # 0.020 Neutrophils # 4.6 Lymphocytes # 1.1 Monocytes # 1.1 H Eosinophils # 0.2 Basophils # 0.0 Nucleated Red Blood Cells # 0.0 Sodium Level 139 Potassium Level 4.0 Chloride Level 105 Carbon Dioxide Level 27 Anion Gap 7 Blood Urea Nitrogen 10 Creatinine 0.75 Est Glomerular Filtrat Rate mL/min > 60 Glucose Level 92 Calcium Level 8.7 Phosphorus Level 2.9 Magnesium Level 1.7 Total Bilirubin 0.8 Direct Bilirubin 0.00 Indirect Bilirubin 0.8 Aspartate Amino Transf (AST/SGOT) 112 H Alanine Aminotransferase (ALT/SGPT) 73 H Alkaline Phosphatase 57 Total Protein 6.1 Albumin 3.2 L Globulin 2.90 Albumin/Globulin Ratio 1.10 Exam/Review of Systems Exam Vitals Vital Signs Date Temp Pulse Resp B/P (MAP) Pulse Ox O2 O2 Flow FiO2 Time Delivery Rate 01/14/19 97.5 98 20 130/74 94 07:55 (92) 01/13/19 2.0 17:45 01/13/19 Room Air 15:37 Intake and Output 01/13/19 01/13/19 01/14/19 1515:00 23:00 07:00 IntakeIntake Total 2020 ml 600 ml OutputOutput Total 1000 ml 1200 ml BalanceBalance 1020 ml -600 ml Results Results 24hrs Laboratory Tests Test 01/14/19 04:46 White Blood Count 7.0 Red Blood Count 3.73 L Hemoglobin 13.2 L Hematocrit 38.6 L Mean Corpuscular Volume 103.5 H Mean Corpuscular Hemoglobin 35.4 H Mean Corpuscular Hemoglobin Concent 34.2 Red Cell Distribution Width 12.8 Platelet Count 84 #L Mean Platelet Volume 13.3 H Immature Granulocytes % 0.300 Neutrophils % 65.7 Lymphocytes % 15.3 Monocytes % 15.5 H Eosinophils % 2.9 Basophils % 0.3 Nucleated Red Blood Cells % 0.0 Immature Granulocytes # 0.020 Neutrophils # 4.6 Lymphocytes # 1.1 Monocytes # 1.1 H Eosinophils # 0.2 Basophils # 0.0 Nucleated Red Blood Cells # 0.0 Sodium Level 139 Potassium Level 4.0 Chloride Level 105 Carbon Dioxide Level 27 Anion Gap 7 Blood Urea Nitrogen 10 Creatinine 0.75 Est Glomerular Filtrat Rate mL/min > 60 Glucose Level 92 Calcium Level 8.7 Phosphorus Level 2.9 Magnesium Level 1.7 Total Bilirubin 0.8 Direct Bilirubin 0.00 Indirect Bilirubin 0.8 Aspartate Amino Transf (AST/SGOT) 112 H Alanine Aminotransferase (ALT/SGPT) 73 H Alkaline Phosphatase 57 Total Protein 6.1 Albumin 3.2 L Globulin 2.90 Albumin/Globulin Ratio 1.10 Medications Medication Current Medications Sodium Chloride 1,000 ml @ 80 mls/hr [id number] IV Last administered on 01/14/19 10:57; Admin Dose 80 MLS/HR; Start 01/10/19 at 14:32 IV Flush (NS 3 ml) 3 ml PER PROTOCOL IV ; Start 01/10/19 at 15:00 Ondansetron HCl (Zofran Inj) 4 mg Q6H PRN IV NAUSEA/VOMITING; Start 01/10/19 at 15:00 Acetaminophen (Tylenol Tab) 650 mg Q6H PRN PO .PAIN 1-3 OR TEMP Last administered on 01/13/19 09:11; Admin Dose 650 MG; Start 01/10/19 at 15:00 Pantoprazole (Protonix Tab) 40 mg DAILY@06 PO Last administered on 01/14/19 06:41; Admin Dose 40 MG; Start 01/11/19 at 06:00 Lorazepam (Ativan) 2 mg Q1H PRN IV alcohol withdrawal symptoms Last administered on 01/14/19 10:57; Admin Dose 2 MG; Start 01/10/19 at 15:00 Albuterol/ Ipratropium (Duoneb) 3 ml Q4H RESP THERAPY PRN HHN SHORTNESS OF BREATH; Start 01/10/19 at 15:00 Diazepam (Valium) 10 mg Q1H PRN IV severe withdrawl; Start 01/11/19 at 17:30 Acetaminophen/ Hydrocodone Bitart ([place] (5/325)) 1 tab Q6H PRN PO MODERATE PAIN LEVEL 4-6 Last administered on 01/14/19 11:40; Admin Dose 1 TAB; Start 01/13/19 at 04:00 Chlordiazepoxide (Librium) 25 mg TID PO ; Start 01/14/19 at 13:00 ANGELITA ANGULO Jan 14, 2019 12:00
[2019-01-14] MEDS: CHLORDIAZEPOXIDE 25 MG CAP PO SCH ×2 (13:26→20:34)
[2019-01-14 14:08] VITALS: BP 135/87; PULSE 103; RESP 20
[2019-01-14 19:52] VITALS: BP 136/89; PULSE 113; RESP 18
[2019-01-15] MEDS: LORAZEPAM 2 MG INJ IV PRN ×3 (00:25→10:13)
[2019-01-15 02:09] VITALS: BP 137/84; PULSE 114; RESP 18
[2019-01-15] MEDS: SOD CHLORIDE 0.9% 1,000 ML IV SCH ×2 (04:03→20:07)
[2019-01-15] MEDS: PANTOPRAZOLE (EC) 40 MG TAB PO SCH (06:10)
[2019-01-15 07:59] VITALS: BP 148/90; PULSE 109; RESP 18
[2019-01-15] MEDS: CHLORDIAZEPOXIDE 25 MG CAP PO SCH ×3 (08:11→21:00)
[2019-01-15] MEDS ORDERED: MAGNESIUM SULFATE 3 GM in DEXTROSE 5% 100 ML IVPB ONE (11:00)
[2019-01-15 14:00] VITALS: BP 137/82; PULSE 99; RESP 18
--- NOTE | 2019-01-15 14:07 | PN ---
Date/Time of Note Date/Time of Note DATE: 01/15/19 TIME: 14:04 Assessment/Plan VTE Prophylaxis Risk score (from Ns)>0 risk: 2 SCD applied (from Ns): Yes Pharmacological prophylaxis: other Lines/Catheters IV Catheter Type (from Nrsg): Peripheral IV Urinary Cath still in place: No Assessment/Plan Hospital Course S: Per nursing staff patient still having some agitation symptoms. O: VS - see below PE: Gen: lying in bed using iPad, no acute distress Eyes: PERRL, no icterus HEENT: No tongue fasciculations, clear oropharynx, moist mucous membranes Neck: Supple, no lymphadenopathy Card: Regular rate and rhythm, no murmurs Pulm: Clear to auscultation bilaterally Abd: Soft, nontender throughout, nondistended. No hepatosplenomegaly. Ext: No cyanosis/clubbing/edema Neuro: No focal deficits Assessment/Plan: 63 yo man presents in alcohol withdrawal. #EtOH withdrawal-slowly improving but still present, last drink 3 days [employer], unknown how much was drinking before-earlier this admission patient was requiring frequent Ativan and Valium IV - Banana bag x1 - Low blood sugar, aggressive thiamine replacement in anticipation of Wernicke's. - Librium, and Ativan as needed #Macrocytosis- Not associated with anemia- Now folate and B12 replete. -Monitor #Thrombocytopenia- Likely bone marrow suppression from alcohol use, but other cell lines not suppressed- Coarse liver on US, may have early cirrhosis. -Monitor #R rib fracture? - Pain control DVT: SCDs GI: None Result Diagram: 01/15/19 0424 01/15/19 0424 Results 24hrs Laboratory Tests Test 01/15/19 04:24 White Blood Count 7.9 Red Blood Count 3.80 L Hemoglobin 13.6 L Hematocrit 39.1 L Mean Corpuscular Volume 102.9 H Mean Corpuscular Hemoglobin 35.8 H Mean Corpuscular Hemoglobin Concent 34.8 Red Cell Distribution Width 12.6 Platelet Count 142 # Mean Platelet Volume 12.9 H Immature Granulocytes % 0.500 H Neutrophils % 66.5 Lymphocytes % 11.8 L Monocytes % 20.0 H Eosinophils % 0.8 Basophils % 0.4 Nucleated Red Blood Cells % 0.0 Immature Granulocytes # 0.040 H Neutrophils # 5.3 Lymphocytes # 0.9 Monocytes # 1.6 H Eosinophils # 0.1 Basophils # 0.0 Nucleated Red Blood Cells # 0.0 Sodium Level 138 Potassium Level 3.5 Chloride Level 103 Carbon Dioxide Level 26 Anion Gap 9 Blood Urea Nitrogen 9 Creatinine 0.74 Est Glomerular Filtrat Rate mL/min > 60 Glucose Level 102 Calcium Level 9.0 Phosphorus Level 3.1 Magnesium Level 1.2 L Exam/Review of Systems Exam Vitals Vital Signs Date Temp Pulse Resp B/P (MAP) Pulse Ox O2 O2 Flow FiO2 Time Delivery Rate 01/15/19 99.0 109 18 148/90 95 Room Air 07:59 (109) 01/13/19 2.0 17:45 Intake and Output 01/14/19 01/14/19 01/15/19 1515:00 23:00 07:00 IntakeIntake Total 1480 ml 1320 ml 680 ml OutputOutput Total 1500 ml 2650 ml BalanceBalance -20 ml -1330 ml 680 ml Results Results 24hrs Laboratory Tests Test 01/15/19 04:24 White Blood Count 7.9 Red Blood Count 3.80 L Hemoglobin 13.6 L Hematocrit 39.1 L Mean Corpuscular Volume 102.9 H Mean Corpuscular Hemoglobin 35.8 H Mean Corpuscular Hemoglobin Concent 34.8 Red Cell Distribution Width 12.6 Platelet Count 142 # Mean Platelet Volume 12.9 H Immature Granulocytes % 0.500 H Neutrophils % 66.5 Lymphocytes % 11.8 L Monocytes % 20.0 H Eosinophils % 0.8 Basophils % 0.4 Nucleated Red Blood Cells % 0.0 Immature Granulocytes # 0.040 H Neutrophils # 5.3 Lymphocytes # 0.9 Monocytes # 1.6 H Eosinophils # 0.1 Basophils # 0.0 Nucleated Red Blood Cells # 0.0 Sodium Level 138 Potassium Level 3.5 Chloride Level 103 Carbon Dioxide Level 26 Anion Gap 9 Blood Urea Nitrogen 9 Creatinine 0.74 Est Glomerular Filtrat Rate mL/min > 60 Glucose Level 102 Calcium Level 9.0 Phosphorus Level 3.1 Magnesium Level 1.2 L Medications Medication Current Medications Sodium Chloride 1,000 ml @ 80 mls/hr [id number] IV Last administered on 01/15/19at 04:03; Admin Dose 80 MLS/HR; Start 01/10/19 at 14:32 IV Flush (NS 3 ml) 3 ml PER PROTOCOL IV ; Start 01/10/19 at 15:00 Ondansetron HCl (Zofran Inj) 4 mg Q6H PRN IV NAUSEA/VOMITING; Start 01/10/19 at 15:00 Acetaminophen (Tylenol Tab) 650 mg Q6H PRN PO .PAIN 1-3 OR TEMP Last administered on 01/13/19 09:11; Admin Dose 650 MG; Start 01/10/19 at 15:00 Pantoprazole (Protonix Tab) 40 mg DAILY@06 PO Last administered on 01/15/19 06:10; Admin Dose 40 MG; Start 01/11/19 at 06:00 Lorazepam (Ativan) 2 mg Q1H PRN IV alcohol withdrawal symptoms Last administered on 01/15/19 10:13; Admin Dose 2 MG; Start 01/10/19 at 15:00 Albuterol/ Ipratropium (Duoneb) 3 ml Q4H RESP THERAPY PRN HHN SHORTNESS OF BREATH; Start 01/10/19 at 15:00 Diazepam (Valium) 10 mg Q1H PRN IV severe withdrawl; Start 01/11/19 at 17:30 Acetaminophen/ Hydrocodone Bitart ([place] (5/325)) 1 tab Q6H PRN PO MODERATE PAIN LEVEL 4-6 Last administered on 01/14/19 11:40; Admin Dose 1 TAB; Start 01/13/19 at 04:00 Chlordiazepoxide (Librium) 100 mg TID PO Last administered on 01/15/19 08:11; Admin Dose 100 MG; Start 01/15/19 at 09:00 ANGELITA ANGULO Jan 15, 2019 14:07
[2019-01-15 20:00] VITALS: BP 122/74; PULSE 111; RESP 18
[2019-01-16 02:00] VITALS: BP 135/82; PULSE 69; RESP 18
[2019-01-16] MEDS: HYDROCODONE/APAP (5/325) TAB PO PRN (04:17)
[2019-01-16] MEDS: PANTOPRAZOLE (EC) 40 MG TAB PO SCH (06:11)
[2019-01-16 07:34] VITALS: BP 147/81; PULSE 101; RESP 18
[2019-01-16] MEDS: SOD CHLORIDE 0.9% 1,000 ML IV SCH ×2 (09:04→20:37)
[2019-01-16] MEDS: CHLORDIAZEPOXIDE 25 MG CAP PO SCH ×3 (09:04→20:38)
--- NOTE | 2019-01-16 10:48 | PN ---
Date/Time of Note Date/Time of Note DATE: 01/16/19 TIME: 10:47 Assessment/Plan VTE Prophylaxis Risk score (from Nsg)>0 risk: 2 SCD applied (from Nsg): Yes Pharmacological prophylaxis: other Lines/Catheters IV Catheter Type (from Nrsg): Peripheral IV Urinary Cath still in place: No Assessment/Plan Hospital Course S: Patient eating meals and taking p.o. meds, less agitated since yesterday. No acute events overnight. O: VS - see below PE: Gen: lying in bed using iPad, no acute distress Eyes: PERRL, no icterus HEENT: No tongue fasciculations, clear oropharynx, moist mucous membranes Neck: Supple, no lymphadenopathy Card: Regular rate and rhythm, no murmurs Pulm: Clear to auscultation bilaterally Abd: Soft, nontender throughout, nondistended. No hepatosplenomegaly. Ext: No cyanosis/clubbing/edema Neuro: No focal deficits Assessment/Plan: 63 yo man presents in alcohol withdrawal. 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 -Monitor #Thrombocytopenia- Likely bone marrow suppression from alcohol use, but other cell lines not suppressed- Coarse liver on US, may have early cirrhosis. No signs of bleeding. -Monitor #R rib fracture? - Pain control DVT: SCDs GI: None Result Diagram: 01/15/19 0424 01/15/19 0424 Exam/Review of Systems Exam Vitals Vital Signs Date Temp Pulse Resp B/P (MAP) Pulse Ox O2 O2 Flow FiO2 Time Delivery Rate 01/16/19 98.4 101 18 147/81 93 Room Air 07:34 (103) 01/13/19 2.0 17:45 Intake and Output 01/15/19 01/15/19 01/16/19 1515:00 23:00 07:00 IntakeIntake Total 826 ml 1080 ml 920 ml OutputOutput Total 1500 ml 500 ml 550 ml BalanceBalance -674 ml 580 ml 370 ml Medications Medication Current Medications Sodium Chloride 1,000 ml @ 80 mls/hr [id number] IV Last administered on 01/16/19 09:04; Admin Dose 80 MLS/HR; Start 01/10/19 at 14:32 IV Flush (NS 3 ml) 3 ml PER PROTOCOL IV ; Start 01/10/19 at 15:00 Ondansetron HCl (Zofran Inj) 4 mg Q6H PRN IV NAUSEA/VOMITING; Start 01/10/19 at 15:00 Acetaminophen (Tylenol Tab) 650 mg Q6H PRN PO .PAIN 1-3 OR TEMP Last administered on 01/13/19 09:11; Admin Dose 650 MG; Start 01/10/19 at 15:00 Pantoprazole (Protonix Tab) 40 mg DAILY@06 PO Last administered on 01/16/19 06:11; Admin Dose 40 MG; Start 01/11/19 at 06:00 Lorazepam (Ativan) 2 mg Q1H PRN IV alcohol withdrawal symptoms Last ad ministered on 01/15/19 10:13; Admin Dose 2 MG; Start 01/10/19 at 15:00 Albuterol/ Ipratropium (Duoneb) 3 ml Q4H RESP THERAPY PRN HHN SHORTNESS OF BREATH; Start 01/10/19 at 15:00 Diazepam (Valium) 10 mg Q1H PRN IV severe withdrawl; Start 01/11/19 at 17:30 Acetaminophen/ Hydrocodone Bitart ([place] (5/325)) 1 tab Q6H PRN PO MODERATE PAIN LEVEL 4-6 Last administered on 01/16/19 04:17; Admin Dose 1 TAB; Start 01/13/19 at 04:00 Chlordiazepoxide (Librium) 100 mg TID PO Last administered on 01/16/19 09:04; Admin Dose 100 MG; Start 01/15/19 at 09:00 ANGELITA ANGULO Jan 16, 2019 10:48
[2019-01-16 15:10] VITALS: BP 132/85; PULSE 106; RESP 18
[2019-01-16 19:43] VITALS: BP 131/80; PULSE 94; RESP 16
[2019-01-17 01:50] VITALS: BP 148/83; PULSE 115; RESP 15
[2019-01-17] MEDS: HYDROCODONE/APAP (5/325) TAB PO PRN (02:32)
[2019-01-17] MEDS: PANTOPRAZOLE (EC) 40 MG TAB PO SCH (06:31)
[2019-01-17 08:51] VITALS: BP 130/82; PULSE 109; RESP 18
[2019-01-17] MEDS: CHLORDIAZEPOXIDE 25 MG CAP PO SCH ×3 (09:04→21:15)
[2019-01-17] MEDS: SOD CHLORIDE 0.9% 1,000 ML IV SCH ×3 (09:50→21:32)
[2019-01-17 14:05] VITALS: BP 136/81; PULSE 98; RESP 18
--- NOTE | 2019-01-17 15:05 | PN ---
Date/Time of Note Date/Time of Note DATE: 01/17/19 TIME: 15:04 Assessment/Plan VTE Prophylaxis Risk score (from Nsg)>0 risk: 2 SCD applied (from Nsg): Yes Pharmacological prophylaxis: other Lines/Catheters IV Catheter Type (from Nrsg): Peripheral IV Urinary Cath still in place: No Assessment/Plan Hospital Course S: Patient still weak on his feet when working with PT, but less agitated overall. O: VS - see below PE: Gen: lying in bed, no acute distress Eyes: PERRL, no icterus HEENT: No tongue fasciculations, clear oropharynx, moist mucous membranes Neck: Supple, no lymphadenopathy Card: Regular rate and rhythm, no murmurs Pulm: Clear to auscultation bilaterally Abd: Soft, nontender throughout, nondistended. No hepatosplenomegaly. Ext: No cyanosis/clubbing/edema Neuro: No focal deficits Assessment/Plan: 63 yo man presents in alcohol withdrawal. 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 -Monitor #Thrombocytopenia- Likely bone marrow suppression from alcohol use, but other cell lines not suppressed- Coarse liver on US, may have early cirrhosis. No signs of bleeding. -Monitor #R rib fracture? - Pain control DVT: SCDs GI: None Result Diagram: 01/16/19 1118 01/16/19 1118 Exam/Review of Systems Exam Vitals Vital Signs Date Temp Pulse Resp B/P (MAP) Pulse Ox O2 O2 Flow FiO2 Time Delivery Rate 01/17/19 99.1 98 18 136/81 98 Room Air 14:05 (99) 01/13/19 2.0 17:45 Intake and Output 01/16/19 01/16/19 01/17/19 1515:00 23:00 07:00 IntakeIntake Total 920 ml 1000 ml 800 ml OutputOutput Total 1880 ml BalanceBalance 920 ml -880 ml 800 ml Medications Medication Current Medications Sodium Chloride 1,000 ml @ 80 mls/hr [id number] IV Last administered on 01/17/19 09:50; Admin Dose 80 MLS/HR; Start 01/10/19 at 14:32 IV Flush (NS 3 ml) 3 ml PER PROTOCOL IV ; Start 01/10/19 at 15:00 Ondansetron HCl (Zofran Inj) 4 mg Q6H PRN IV NAUSEA/VOMITING; Start 01/10/19 at 15:00 Acetaminophen (Tylenol Tab) 650 mg Q6H PRN PO .PAIN 1-3 OR TEMP Last adm inistered on 01/13/19 09:11; Admin Dose 650 MG; Start 01/10/19 at 15:00 Pantoprazole (Protonix Tab) 40 mg DAILY@06 PO Last administered on 01/17/19 06:31; Admin Dose 40 MG; Start 01/11/19 at 06:00 Lorazepam (Ativan) 2 mg Q1H PRN IV alcohol withdrawal symptoms Last administered on 01/15/19 10:13; Admin Dose 2 MG; Start 01/10/19 at 15:00 Albuterol/ Ipratropium (Duoneb) 3 ml Q4H RESP THERAPY PRN HHN SHORTNESS OF BREATH; Start 01/10/19 at 15:00 Diazepam (Valium) 10 mg Q1H PRN IV severe withdrawl; Start 01/11/19 at 17:30 Acetaminophen/ Hydrocodone Bitart ([place] (5/325)) 1 tab Q6H PRN PO MODERATE PAIN LEVEL 4-6 Last administered on 01/17/19 02:32; Admin Dose 1 TAB; Start 01/13/19 at 04:00 Chlordiazepoxide (Librium) 100 mg TID PO Last administered on 01/17/19 13:03; Admin Dose 100 MG; Start 01/15/19 at 09:00 ANGELITA ANGULO Jan 17, 2019 15:05
[2019-01-17 19:25] VITALS: BP 162/94; PULSE 113; RESP 16
[2019-01-17] MEDS: LORAZEPAM 2 MG INJ IV PRN (21:20)
[2019-01-18 01:52] VITALS: BP 149/97; PULSE 120; RESP 20
[2019-01-18 03:37] VITALS: PULSE 114
[2019-01-18] MEDS: LORAZEPAM 2 MG INJ IV PRN (04:09)
[2019-01-18] MEDS: PANTOPRAZOLE (EC) 40 MG TAB PO SCH (05:45)
[2019-01-18 07:18] VITALS: BP 167/96; PULSE 55; RESP 18
--- NOTE | 2019-01-18 08:47 | PSY ---
Date/Time of Note Date/Time of Note DATE: 01/18/19 TIME: 08:46 Psychiatric Subjective Eval Consent Pt consented to telemedicine: No Subjective Evaluation Patient location: inpatient Chief Complaint: hallunication @0230 this am, no prescribed medication History of present illness Patient is a 63 yo male admitted for visual hallucinations and fall' Hospitalization: no Medical history Problems Medical Problems: (1) Acute hyperactive alcohol withdrawal delirium Status: Acute (2) Acute renal insufficiency Status: Acute (3) Alcohol abuse Status: Acute (4) Dehydration, moderate Status: Acute (5) Transaminitis Status: Acute Allergies: Coded Allergies: No Known Allergy (Unverified , 01/10/19) Substance Abuse Substance abuse history: Yes Prior substance abuse treatmen: Yes Social History Marital status: single DPA/Conservatorship: No Psychiatric Objective Eval Review of Systems: Review of Systems: Not Applicable Physical Examination: Physical Examination: Not Applicable Energy: Decreased Interest: Decreased Mental Status Examination: Appearance: Poor Hygiene Eye Contact: Fair Behavior: Cooperative Speech: Soft, Disorganized AFFECT: Flat, Constricted Mood: Depressed Orientation: x4 Insight: Mild Judgement: Mild Attention Span: Distractible Laboratory Results Laboratory Tests Test 01/16/19 11:18 White Blood Count 8.0 10^3/ul Red Blood Count 3.66 10^6/ul Hemoglobin 13.0 g/dl Hematocrit 37.9 % Mean Corpuscular Volume 103.6 fl Mean Corpuscular Hemoglobin 35.5 pg Mean Corpuscular Hemoglobin Concent 34.3 g/dl Red Cell Distribution Width 12.8 % Platelet Count 210 10^3/UL Mean Platelet Volume 12.0 fl Immature Granulocytes % 0.400 % Neutrophils % 60.3 % Lymphocytes % 11.6 % Monocytes % 26.9 % Eosinophils % 0.6 % Basophils % 0.2 % Nucleated Red Blood Cells % 0.0 /100WBC Immature Granulocytes # 0.030 10^3/ul Neutrophils # 4.9 10^3/ul Lymphocytes # 0.9 10^3/ul Monocytes # 2.2 10^3/ul Eosinophils # 0.1 10^3/ul Basophils # 0.0 10^3/ul Nucleated Red Blood Cells # 0.0 10^3/ul Sodium Level 135 mmol/L Potassium Level 3.8 mmol/L Chloride Level 107 mmol/L Carbon Dioxide Level 23 mmol/L Anion Gap 5 Blood Urea Nitrogen 14 mg/dl Creatinine 0.76 mg/dl Est Glomerular Filtrat Rate mL/min > 60 mL/min Glucose Level 120 mg/dl Calcium Level 9.0 mg/dl Magnesium Level 1.5 mg/dl Assessment and Plan Assessment/Diagnosis Diagnosis Major depressive disorder single episode with psychosis Recommendation/Plan Medication Management Patient will benefit from Lexapro 10 mg however he is I am not able to explain the risk and benefits to the patient because he is sleepy Psychotherapy Provide supportive therapy Discharge Disposition: Other Legal Status: Voluntary (Does not meet criteria for 5150 hold patient denies suicidal ideation) ROLAN PALOMO NP Jan 18, 2019 08:47
[2019-01-18] MEDS: CHLORDIAZEPOXIDE 25 MG CAP PO SCH ×3 (09:00→20:45)
[2019-01-18] MEDS: SOD CHLORIDE 0.9% 1,000 ML IV SCH ×3 (09:50→22:32)
[2019-01-18 10:33] VITALS: BP 122/65
--- NOTE | 2019-01-18 12:27 | PN ---
Date/Time of Note Date/Time of Note DATE: 01/18/19 TIME: 12:24 Assessment/Plan VTE Prophylaxis Risk score (from Nsg)>0 risk: 2 SCD applied (from Nsg): Yes Pharmacological prophylaxis: other Lines/Catheters IV Catheter Type (from Nrsg): Peripheral IV Urinary Cath still in place: No Assessment/Plan Hospital Course S: Patient evaluated by psychiatry team yesterday. Not started on antid epressant yet. Had some agitation episodes overnight that required IV Ativan, more calm this morning. O: VS - see below PE: Gen: lying in bed, no acute distress Eyes: PERRL, no icterus HEENT: No tongue fasciculations, clear oropharynx, moist mucous membranes Neck: Supple, no lymphadenopathy Card: Regular rate and rhythm, no murmurs Pulm: Clear to auscultation bilaterally Abd: Soft, nontender throughout, nondistended. No hepatosplenomegaly. Ext: No cyanosis/clubbing/edema Neuro: No focal deficits Assessment/Plan: 63 yo man presents in alcohol withdrawal. 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 -Monitor #Thrombocytopenia- Likely bone marrow suppression from alcohol use, but other cell lines not suppressed- Coarse liver on US, may have early cirrhosis. No signs of bleeding. -Monitor #R rib fracture? - Pain control #Major depression: Appreciate psychiatry consult -Likely will start antidepressant when patient more alert and oriented, follow-up further psychiatry recommendations DVT: SCDs GI: None Result Diagram: 01/16/19 1118 01/16/19 1118 Exam/Review of Systems Exam Vitals Vital Signs Date Temp Pulse Resp B/P (MAP) Pulse Ox O2 O2 Flow FiO2 Time Delivery Rate 01/18/19 122/65 10:33 (84) 01/18/19 99.6 55 18 93 07:18 01/17/19 Room Air 14:05 Intake and Output 01/17/19 01/17/19 01/18/19 1515:00 23:00 07:00 IntakeIntake Total 800 ml 1240 ml 800 ml OutputOutput Total 800 ml 1100 ml 750 ml BalanceBalance 0 ml 140 ml 50 ml Medications Medication Current Medications Sodium Chloride 1,000 ml @ 80 mls/hr [id number] IV Last administered on 01/18/19 09:50; Admin Dose 80 MLS/HR; Start 01/10/19 at 14:32 IV Flush (NS 3 ml) 3 ml PER PROTOCOL IV ; Start 01/10/19 at 15:00 Ondansetron HCl (Zofran Inj) 4 mg Q6H PRN IV NAUSEA/VOMITING; Start 01/10/19 at 15:00 Acetaminophen (Tylenol Tab) 650 mg Q6H PRN PO .PAIN 1-3 OR TEMP Last administered on 01/13/19 09:11; Admin Dose 650 MG; Start 01/10/19 at 15:00 Pantoprazole (Protonix Tab) 40 mg DAILY@06 PO Last administered on 01/18/19 05:45; Admin Dose 40 MG; Start 01/11/19 at 06:00 Lorazepam (Ativan) 2 mg Q1H PRN IV alcohol withdrawal symptoms Last administered on 01/18/19 04:09; Admin Dose 2 MG; Start 01/10/19 at 15:00 Albuterol/ Ipratropium (Duoneb) 3 ml Q4H RESP THERAPY PRN HHN SHORTNESS OF BREATH; Start 01/10/19 at 15:00 Diazepam (Valium) 10 mg Q1H PRN IV severe withdrawl; Start 01/11/19 at 17:30 Acetaminophen/ Hydrocodone Bitart ([place] (5/325)) 1 tab Q6H PRN PO MODERATE PAIN LEVEL 4-6 Last administered on 01/17/19 02:32; Admin Dose 1 TAB; Start at 04:00 Chlordiazepoxide (Librium) 100 mg TID PO Last administered on 01/17/19 21:15; Admin Dose 100 MG; Start 01/15/19 at 09:00 ANGELITA ANGULO Jan 18, 2019 12:27
[2019-01-18 15:43] VITALS: BP 111/65; PULSE 106; RESP 18
[2019-01-18 19:49] VITALS: BP 106/65; PULSE 107; RESP 19
[2019-01-18] MEDS: HYDROCODONE/APAP (5/325) TAB PO PRN (20:45)
[2019-01-19 02:00] VITALS: BP 127/68; PULSE 90; RESP 18
[2019-01-19] MEDS: PANTOPRAZOLE (EC) 40 MG TAB PO SCH (05:45)
[2019-01-19 08:22] VITALS: BP 156/86; PULSE 104; RESP 18
[2019-01-19] MEDS: CHLORDIAZEPOXIDE 25 MG CAP PO SCH ×3 (09:06→20:36)
[2019-01-19] MEDS ORDERED: MAGNESIUM SULFATE 3 GM in DEXTROSE 5% 100 ML IVPB ONE (10:00)
[2019-01-19] MEDS: SOD CHLORIDE 0.9% 1,000 ML IV SCH ×2 (10:34→23:32)
--- NOTE | 2019-01-19 13:00 | PN ---
Date/Time of Note Date/Time of Note DATE: 01/19/19 TIME: 12:57 Assessment/Plan VTE Prophylaxis Risk score (from Nsg)>0 risk: 2 SCD applied (from Nsg): Yes Pharmacological prophylaxis: other Lines/Catheters IV Catheter Type (from Nrsg): Peripheral IV Urinary Cath still in place: No Assessment/Plan Hospital Course S: Patient less lethargic overnight, no fevers noted. Evaluated by psychiatry team 2 days ago, not started on antidepressant yet. O: VS - see below PE: Gen: lying in bed, no acute distress Eyes: PERRL, no icterus HEENT: No tongue fasciculations, clear oropharynx, moist mucous membranes Neck: Supple, no lymphadenopathy Card: Regular rate and rhythm, no murmurs Pulm: Clear to auscultation bilaterally Abd: Soft, nontender throughout, nondistended. No hepatosplenomegaly. Ext: No cyanosis/clubbing/edema Neuro: No focal deficits Assessment/Plan: 63 yo man presents in alcohol withdrawal. 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 -Monitor #Thrombocytopenia- Likely bone marrow suppression from alcohol use, but other cell lines not suppressed- Coarse liver on US, may have early cirrhosis. No signs of bleeding. -Monitor #R rib fracture? - Pain control #Major depression: Appreciate psychiatry consult -Likely will start antidepressant when patient more alert and oriented, follow-up further psychiatry recommendations DVT: SCDs GI: None Dispo: Potential discharge to snf, case management order in place and they are looking for placement. In the meantime family is also interested in having patient go to appropriate support services like alcohol and substance abuse programs and facilities upon discharge and the older adult social work specialist spoke with the family and provided them with resources on this. Result Diagram: 01/19/19 0446 01/19/19 0446 Results 24hrs Laboratory Tests Test 01/19/19 04:46 White Blood Count 7.7 Red Blood Count 3.60 L Hemoglobin 12.5 L Hematocrit 37.3 L Mean Corpuscular Volume 103.6 H Mean Corpuscular Hemoglobin 34.7 H Mean Corpuscular Hemoglobin Concent 33.5 Red Cell Distribution Width 12.2 Platelet Count 422 #H Mean Platelet Volume 11.7 H Immature Granulocytes % 0.400 Neutrophils % 64.0 Lymphocytes % 15.8 Monocytes % 17.8 H Eosinophils % 1.3 Basophils % 0.7 Nucleated Red Blood Cells % 0.0 Immature Granulocytes # 0.030 Neutrophils # 4.9 Lymphocytes # 1.2 Monocytes # 1.4 H Eosinophils # 0.1 Basophils # 0.1 Nucleated Red Blood Cells # 0.0 Sodium Level 139 Potassium Level 3.7 Chloride Level 104 Carbon Dioxide Level 26 Anion Gap 9 Blood Urea Nitrogen 14 Creatinine 0.74 Est Glomerular Filtrat Rate mL/min > 60 Glucose Level 94 Calcium Level 9.0 Phosphorus Level 3.1 Magnesium Level 1.3 L Exam/Review of Systems Exam Vitals Vital Signs Date Temp Pulse Resp B/P (MAP) Pulse Ox O2 O2 Flow FiO2 Time Delivery Rate 01/19/19 99.0 104 18 156/86 94 Room Air 08:22 (109) Intake and Output 01/18/19 01/18/19 01/19/19 1515:00 23:00 07:00 IntakeIntake Total 800 ml 1120 ml 740 ml OutputOutput Total 500 ml 600 ml BalanceBalance 800 ml 620 ml 140 ml Results Results 24hrs Laboratory Tests Test 01/19/19 04:46 White Blood Count 7.7 Red Blood Count 3.60 L Hemoglobin 12.5 L Hematocrit 37.3 L Mean Corpuscular Volume 103.6 H Mean Corpuscular Hemoglobin 34.7 H Mean Corpuscular Hemoglobin Concent 33.5 Red Cell Distribution Width 12.2 Platelet Count 422 #H Mean Platelet Volume 11.7 H Immature Granulocytes % 0.400 Neutrophils % 64.0 Lymphocytes % 15.8 Monocytes % 17.8 H Eosinophils % 1.3 Basophils % 0.7 Nucleated Red Blood Cells % 0.0 Immature Granulocytes # 0.030 Neutrophils # 4.9 Lymphocytes # 1.2 Monocytes # 1.4 H Eosinophils # 0.1 Basophils # 0.1 Nucleated Red Blood Cells # 0.0 Sodium Level 139 Potassium Level 3.7 Chloride Level 104 Carbon Dioxide Level 26 Anion Gap 9 Blood Urea Nitrogen 14 Creatinine 0.74 Est Glomerular Filtrat Rate mL/min > 60 Glucose Level 94 Calcium Level 9.0 Phosphorus Level 3.1 Magnesium Level 1.3 L Medications Medication Current Medications Sodium Chloride 1,000 ml @ 80 mls/hr [id number] IV Last administered on 01/19/19 10:34; Admin Dose 80 MLS/HR; Start 01/10/19 at 14:32 IV Flush (NS 3 ml) 3 ml PER PROTOCOL IV ; Start 01/10/19 at 15:00 Ondansetron HCl (Zofran Inj) 4 mg Q6H PRN IV NAUSEA/VOMITING; Start 01/10/19 at 15:00 Acetaminophen (Tylenol Tab) 650 mg Q6H PRN PO .PAIN 1-3 OR TEMP Last administered on 01/13/19 09:11; Admin Dose 650 MG; Start 01/10/19 at 15:00 Pantoprazole (Protonix Tab) 40 mg DAILY@06 PO Last administered on 01/19/19 05:45; Admin Dose 40 MG; Start 01/11/19 at 06:00 Lorazepam (Ativan) 2 mg Q1H PRN IV alcohol withdrawal symptoms Last administered on 01/18/19 04:09; Admin Dose 2 MG; Start 01/10/19 at 15:00 Albuterol/ Ipratropium (Duoneb) 3 ml Q4H RESP THERAPY PRN HHN SHORTNESS OF BREATH; Start 01/10/19 at 15:00 Diazepam (Valium) 10 mg Q1H PRN IV severe withdrawl; Start 01/11/19 at 17:30 Acetaminophen/ Hydrocodone Bitart ([place] (5/325)) 1 tab Q6H PRN PO MODERATE PAIN LEVEL 4-6 Last administered on 01/18/19 20:45; Admin Dose 1 TAB; Start 01/13/19 at 04:00 Chlordiazepoxide (Librium) 25 mg TID PO Last administered on 01/19/19 09:06; Admin Dose 25 MG; Start 01/18/19 at 13:00 Magnesium Sulfate 3 gm/Dextrose 106 ml @ 35.333 mls/ hr ONCE ONCE IVPB Last administered on 01/19/19 10:34; Admin Dose 35.333 MLS/HR; Start 01/19/19 at 10:00; Stop 01/19/19 at 12:59 ANGELITA ANGULO Jan 19, 2019 13:00
[2019-01-19 14:00] VITALS: BP 141/78; PULSE 106; RESP 18
[2019-01-19 19:30] VITALS: BP 116/61; PULSE 97; RESP 17
[2019-01-20 01:14] VITALS: BP 146/73; PULSE 100; RESP 18
[2019-01-20] MEDS: HYDROCODONE/APAP (5/325) TAB PO PRN ×2 (01:14→20:41)
[2019-01-20] MEDS: SOD CHLORIDE 0.9% 1,000 ML IV SCH ×3 (02:44→15:56)
[2019-01-20] MEDS: PANTOPRAZOLE (EC) 40 MG TAB PO SCH (05:31)
[2019-01-20 07:26] VITALS: BP 135/83; PULSE 96; RESP 16
[2019-01-20] MEDS: CHLORDIAZEPOXIDE 25 MG CAP PO SCH (08:22)
--- NOTE | 2019-01-20 14:14 | PN ---
Date/Time of Note Date/Time of Note DATE: 01/20/19 TIME: 14:06 Assessment/Plan VTE Prophylaxis Risk score (from Nsg)>0 risk: 3 SCD applied (from Nsg): Yes Pharmacological prophylaxis: NA/contraindicated Pharm contraindication: low risk/ambulating Lines/Catheters IV Catheter Type (from Nrsg): Peripheral IV Urinary Cath still in place: No Assessment/Plan Assessment/Plan 63 yo man presents in alcohol withdrawal. #Weakness - Patient last evaluated by PT; had difficulty bearing weight on L knee. - Will get knee XR to evaluate but probably related to overall body weakness. - Continue PT - Also evaluated by social worker psychiatric; may have major depression. #EtOH withdrawal - We would expect withdrawal symptoms would have completely resolved by now, over a week since last drink. - Stop ativan, Librium, all other benzos. These may be contributing to delerium by now. #Macrocytosis- Not associated with anemia - Now folate and B12 replete. #Thrombocytopenia - Likely bone marrow suppression from alcohol use, but other cell lines not suppressed - Coarse liver on US, may have early cirrhosis. - Now resolved, has thrombocytosis. DVT: SCDs GI: None Dispo: Potential discharge to snf, case management order in place and they are looking for placement. In the meantime family is also interested in having patient go to appropriate support services like alcohol and substance abuse programs and facilities upon discharge and the manager social work spoke with the family and provided them with resources on this. Result Diagram: 01/20/19 0423 01/20/19 0423 Subjective 24 Hr Interval Summary Free Text/Dictation No acute overnight events. Patient still slurring words, hard to understand speech. Had bowel movement in bed today. Exam/Review of Systems Exam Vitals Vital Signs Date Temp Pulse Resp B/P (MAP) Pulse Ox O2 O2 Flow FiO2 Time Delivery Rate 01/20/19 98.1 96 16 135/83 93 07:26 (100) 01/19/19 Room Air 14:00 Intake and Output 01/19/19 01/19/19 01/20/19 1515:00 23:00 07:00 IntakeIntake Total 1340 ml 666 ml 1090 ml OutputOutput Total 1100 ml 1000 ml BalanceBalance 240 ml 666 ml 90 ml Exam Gen: Disheveled man lying in bed, no acute distress. Eyes: PERRL, no icterus HEENT: No tongue fasciculations, clear oropharynx, moist mucous membranes Neck: Supple, no lymphadenopathy Card: Regular rate and rhythm, no murmurs Pulm: Clear to auscultation bilaterally Abd: Soft, nontender throughout, nondistended. No hepatosplenomegaly. Ext: No cyanosis/clubbing/edema Neuro: No hand tremor. Results Results 24hrs Laboratory Tests Test 01/19/19 14:55 01/20/19 04:23 Urine Color YELLOW Urine Clarity SLIGHTLY CLOUDY A Urine pH 6.0 Urine Specific [place] 1.004 Urine Ketones NEGATIVE Urine Nitrite NEGATIVE Urine Bilirubin NEGATIVE Urine Urobilinogen 1+ H Urine Leukocyte Esterase NEGATIVE Urine Microscopic RBC 0 Urine Microscopic WBC 1 Urine Bacteria FEW A Urine Hemoglobin 1+ H Urine Glucose NEGATIVE Urine Total Protein NEGATIVE White Blood Count 6.7 Red Blood Count 3.20 L Hemoglobin 11.4 L Hematocrit 33.5 L Mean Corpuscular Volume 104.7 H Mean Corpuscular Hemoglobin 35.6 H Mean Corpuscular Hemoglobin Concent 34.0 Red Cell Distribution Width 12.3 Platelet Count 477 H Mean Platelet Volume 11.1 H Immature Granulocytes % 0.600 H Neutrophils % 67.5 Lymphocytes % 15.9 Monocytes % 13.8 H Eosinophils % 1.4 Basophils % 0.8 Nucleated Red Blood Cells % 0.0 Immature Granulocytes # 0.040 H Neutrophils # 4.5 Lymphocytes # 1.1 Monocytes # 0.9 Eosinophils # 0.1 Basophils # 0.1 Nucleated Red Blood Cells # 0.0 Sodium Level 139 Potassium Level 3.4 L Chloride Level 106 Carbon Dioxide Level 25 Anion Gap 8 Blood Urea Nitrogen 13 Creatinine 0.69 Est Glomerular Filtrat Rate mL/min > 60 Glucose Level 96 Calcium Level 8.8 Phosphorus Level 3.2 Magnesium Level 1.7 Medications Medication Current Medications Sodium Chloride 1,000 ml @ 80 mls/hr [id number] IV Last administered on 01/20/19at 02:44; Admin Dose 80 MLS/HR; Start 01/10/19 at 14:32 IV Flush (NS 3 ml) 3 ml PER PROTOCOL IV ; Start 01/10/19 at 15:00 Ondansetron HCl (Zofran Inj) 4 mg Q6H PRN IV NAUSEA/VOMITING; Start 01/10/19 at 15:00 Acetaminophen (Tylenol Tab) 650 mg Q6H PRN PO .PAIN 1-3 OR TEMP Last administered on 01/13/19 09:11; Admin Dose 650 MG; Start 01/10/19 at 15:00 Pantoprazole (Protonix Tab) 40 mg DAILY@06 PO Last administered on 01/20/19 05:31; Admin Dose 40 MG; Start 01/11/19 at 06:00 Lorazepam (Ativan) 2 mg Q1H PRN IV alcohol withdrawal symptoms Last administered on 01/18/19 04:09; Admin Dose 2 MG; Start 01/10/19 at 15:00 Albuterol/ Ipratropium (Duoneb) 3 ml Q4H RESP THERAPY PRN HHN SHORTNESS OF BREATH; Start 01/10/19 at 15:00 Diazepam (Valium) 10 mg Q1H PRN IV severe withdrawl; Start 01/11/19 at 17:30 Acetaminophen/ Hydrocodone Bitart ([place] (5/325)) 1 tab Q6H PRN PO MODERATE PAIN LEVEL 4-6 Last administered on 01/20/19at 01:14; Admin Dose 1 TAB; Start 01/13/19 at 04:00 Chlordiazepoxide (Librium) 25 mg TID PO Last administered on 01/20/19 08:22; Admin Dose 25 MG; Start 01/18/19 at 13:00 KARINA CHAWLA MD Jan 20, 2019 14:13
[2019-01-20 14:26] VITALS: BP 163/87; PULSE 97; RESP 16
[2019-01-20] MEDS ORDERED: POTASSIUM CHLORIDE 20 MEQ POWDER FOR ORAL SOLN PO ONE (15:00)
[2019-01-20] MEDS ORDERED: MAGNESIUM SULFATE 2 GM/50 ML 50 ML IVPB ONE (15:30)
[2019-01-20 20:56] VITALS: BP 146/83; PULSE 104; RESP 18
[2019-01-21] MEDS ORDERED: traZODone 50 MG TAB PO ONE (02:00)
[2019-01-21] MEDS: PANTOPRAZOLE (EC) 40 MG TAB PO SCH (06:05)
[2019-01-21] MEDS: SOD CHLORIDE 0.9% 1,000 ML IV SCH ×3 (06:06→20:24)
[2019-01-21 07:27] VITALS: BP 150/83; PULSE 97; RESP 17
--- NOTE | 2019-01-21 13:20 | PN ---
Date/Time of Note Date/Time of Note DATE: 01/21/19 TIME: 13:17 Assessment/Plan VTE Prophylaxis Risk score (from Nsg)>0 risk: 3 SCD applied (from Ns): Yes Pharmacological prophylaxis: NA/contraindicated Pharm contraindication: low risk/ambulating Lines/Catheters IV Catheter Type (from Nrsg): [place] Urinary Cath still in place: No Assessment/Plan Assessment/Plan 63 yo man presents in alcohol withdrawal. #Weakness - XR negative for bony problems; may have meniscal or ligament issues. - Continue PT - Also evaluated by psychiatric aides teacher; may have major depression. #EtOH withdrawal - We would expect withdrawal symptoms would have completely resolved by now, ove r a week since last drink. - Off benzos. #Macrocytosis- Not associated with anemia - Now folate and B12 replete. #Thrombocytopenia - Likely bone marrow suppression from alcohol use, but other cell lines not suppressed - Coarse liver on US, may have early cirrhosis. - Now resolved, has thrombocytosis. DVT: SCDs GI: None Dispo: Potential discharge to snf, case management order in place and they are looking for placement. In the meantime family is also interested in having patient go to appropriate support services like alcohol and substance abuse programs and facilities upon discharge and the social sciences instructor spoke with the family and provided them with resources on this. Result Diagram: 01/20/19 0423 01/20/19 0423 Subjective 24 Hr Interval Summary Free Text/Dictation No acute overnight events. Able to ambulate slightly better today with physical therapy. Exam/Review of Systems Exam Vitals Vital Signs Date Temp Pulse Resp B/P (MAP) Pulse Ox O2 O2 Flow FiO2 Time Delivery Rate 01/21/19 98.2 97 17 150/83 94 Room Air 07:27 (105) Intake and Output 01/20/19 01/20/19 01/21/19 1515:00 23:00 07:00 IntakeIntake Total 620 ml 1110 ml 1020 ml OutputOutput Total 800 ml 800 ml BalanceBalance 620 ml 310 ml 220 ml Exam Gen: Disheveled man lying in bed, no acute distress. Eyes: PERRL, no icterus HEENT: No tongue fasciculations, clear oropharynx, moist mucous membranes Neck: Supple, no lymphadenopathy Card: Regular rate and rhythm, no murmurs Pulm: Clear to auscultation bilaterally Abd: Soft, nontender throughout, nondistended. No hepatosplenomegaly. Ext: No cyanosis/clubbing/edema Neuro: No hand tremor. Medications Medication Current Medications Sodium Chloride 1,000 ml @ 80 mls/hr [id number] IV Last administered on 01/21/19 06:06; Admin Dose 80 MLS/HR; Start 01/10/19 at 14:32 IV Flush (NS 3 ml) 3 ml PER PROTOCOL IV ; Start 01/10/19 at 15:00 Ondansetron HCl (Zofran Inj) 4 mg Q6H PRN IV NAUSEA/VOMITING; Start 01/10/19 at 15:00 Acetaminophen (Tylenol Tab) 650 mg Q6H PRN PO .PAIN 1-3 OR TEMP Last administered on 01/13/19at 09:11; Admin Dose 650 MG; Start 01/10/19 at 15:00 Pantoprazole (Protonix Tab) 40 mg DAILY@06 PO Last administered on 01/21/19at 06:05; Admin Dose 40 MG; Start 01/11/19 at 06:00 Albuterol/ Ipratropium (Duoneb) 3 ml Q4H RESP THERAPY PRN HHN SHORTNESS OF BREATH; Start 01/10/19 at 15:00 Acetaminophen/ Hydrocodone Bitart ([place] (5/325)) 1 tab Q6H PRN PO MODERATE PAIN LEVEL 4-6 Last administered on 01/20/19at 20:41; Admin Dose 1 TAB; Start 01/13/19 at 04:00 KARINA CHAWLA MD Jan 21, 2019 13:20
[2019-01-21 14:52] VITALS: BP 145/79; PULSE 85; RESP 18
[2019-01-21 15:16] VITALS: BP 142/66; PULSE 82; RESP 16
[2019-01-21 20:00] VITALS: BP 141/84; PULSE 93; RESP 17
[2019-01-22 02:00] VITALS: BP 154/80; PULSE 86; RESP 19
[2019-01-22] MEDS ORDERED: traZODone 50 MG TAB PO ONE (02:30)
[2019-01-22] MEDS: PANTOPRAZOLE (EC) 40 MG TAB PO SCH (05:43)
[2019-01-22 07:35] VITALS: BP 151/86; PULSE 91; RESP 18
[2019-01-22] MEDS ORDERED: POTASSIUM CHLORIDE 20 MEQ POWDER FOR ORAL SOLN PO ONE (09:00)
[2019-01-22] MEDS ORDERED: MAGNESIUM SULFATE 3 GM in DEXTROSE 5% 100 ML IVPB ONE (10:00)
[2019-01-22 13:14] VITALS: BP 121/83; PULSE 100; RESP 18
[2019-01-22] MEDS: SOD CHLORIDE 0.9% 1,000 ML IV SCH (13:37)
--- NOTE | 2019-01-22 16:44 | PN ---
Date/Time of Note Date/Time of Note DATE: 01/22/19 TIME: 16:40 Assessment/Plan VTE Prophylaxis Risk score (from Nsg)>0 risk: 3 SCD applied (from Ns): Yes Pharmacological prophylaxis: NA/contraindicated Pharm contraindication: low risk/ambulating Lines/Catheters IV Catheter Type (from Nrsg): Peripheral IV Urinary Cath still in place: No Assessment/Plan Assessment/Plan 63 yo man presents in alcohol withdrawal. #Weakness - XR negative for bony problems; may have meniscal or ligament issues. - Continue PT - Also evaluated by psychiatric orderly; may have major depression. #EtOH withdrawal - We would expect withdrawal symptoms would have completely resolved by now, o sergei a week since last drink. - Off benzos. #Macrocytosis- Not associated with anemia - Now folate and B12 replete. #Thrombocytopenia - Likely bone marrow suppression from alcohol use, but other cell lines not suppressed - Coarse liver on US, may have early cirrhosis. - Now resolved, has thrombocytosis. DVT: SCDs GI: None Dispo: Potential discharge to snf, case management order in place and they are looking for placement. In the meantime family is also interested in having patient go to appropriate support services like alcohol and substance abuse programs and facilities upon discharge and the health care social worker spoke with the family and provided them with resources on this. Result Diagram: 01/22/19 0434 01/22/19 0434 Results 24hrs Laboratory Tests Test 01/22/19 04:34 White Blood Count 8.6 Red Blood Count 3.37 L Hemoglobin 11.9 L Hematocrit 35.2 L Mean Corpuscular Volume 104.5 H Mean Corpuscular Hemoglobin 35.3 H Mean Corpuscular Hemoglobin Concent 33.8 Red Cell Distribution Width 12.2 Platelet Count 626 #H Mean Platelet Volume 11.1 H Immature Granulocytes % 0.500 H Neutrophils % 68.6 Lymphocytes % 16.2 Monocytes % 11.8 H Eosinophils % 2.1 Basophils % 0.8 Nucleated Red Blood Cells % 0.0 Immature Granulocytes # 0.040 H Neutrophils # 5.9 Lymphocytes # 1.4 Monocytes # 1.0 H Eosinophils # 0.2 Basophils # 0.1 Nucleated Red Blood Cells # 0.0 Sodium Level 140 Potassium Level 3.4 L Chloride Level 105 Carbon Dioxide Level 25 Anion Gap 10 Blood Urea Nitrogen 8 Creatinine 0.71 Est Glomerular Filtrat Rate mL/min > 60 Glucose Level 87 Calcium Level 9.4 Phosphorus Level 3.3 Magnesium Level 1.2 L Subjective 24 Hr Interval Summary Free Text/Dictation Patient is still very weak. Worked with physical therapy this morning. Early afternoon I got him out of bed to chair. He complained of dysphagia but I did bedside swallow with a cup of water and he did fine. Exam/Review of Systems Exam Vitals Vital Signs Date Temp Pulse Resp B/P (MAP) Pulse Ox O2 O2 Flow FiO2 Time Delivery Rate 01/22/19 99.0 100 18 121/83 100 13:14 (96) 01/21/19 Room Air 15:16 Intake and Output 01/21/19 01/21/19 01/22/19 1515:00 23:00 07:00 IntakeIntake Total 120 ml 1240 ml 720 ml OutputOutput Total 550 ml 850 ml BalanceBalance 120 ml 690 ml -130 ml Exam Gen: Fatigued man lying in bed, no acute distress. Eyes: PERRL, no icterus HEENT: No tongue fasciculations, clear oropharynx, moist mucous membranes Neck: Supple, no lymphadenopathy Card: Regular rate and rhythm, no murmurs Pulm: Clear to auscultation bilaterally Abd: Soft, nontender throughout, nondistended. No hepatosplenomegaly. Ext: No cyanosis/clubbing/edema Neuro: No hand tremor. Results Results 24hrs Laboratory Tests Test 01/22/19 04:34 White Blood Count 8.6 Red Blood Count 3.37 L Hemoglobin 11.9 L Hematocrit 35.2 L Mean Corpuscular Volume 104.5 H Mean Corpuscular Hemoglobin 35.3 H Mean Corpuscular Hemoglobin Concent 33.8 Red Cell Distribution Width 12.2 Platelet Count 626 #H Mean Platelet Volume 11.1 H Immature Granulocytes % 0.500 H Neutrophils % 68.6 Lymphocytes % 16.2 Monocytes % 11.8 H Eosinophils % 2.1 Basophils % 0.8 Nucleated Red Blood Cells % 0.0 Immature Granulocytes # 0.040 H Neutrophils # 5.9 Lymphocytes # 1.4 Monocytes # 1.0 H Eosinophils # 0.2 Basophils # 0.1 Nucleated Red Blood Cells # 0.0 Sodium Level 140 Potassium Level 3.4 L Chloride Level 105 Carbon Dioxide Level 25 Anion Gap 10 Blood Urea Nitrogen 8 Creatinine 0.71 Est Glomerular Filtrat Rate mL/min > 60 Glucose Level 87 Calcium Level 9.4 Phosphorus Level 3.3 Magnesium Level 1.2 L Medications Medication Current Medications Sodium Chloride 1,000 ml @ 80 mls/hr [id number] IV Last administered on 01/22/19at 13:37; Admin Dose 80 MLS/HR; Start 01/10/19 at 14:32 IV Flush (NS 3 ml) 3 ml PER PROTOCOL IV ; Start 01/10/19 at 15:00 Ondansetron HCl (Zofran Inj) 4 mg Q6H PRN IV NAUSEA/VOMITING; Start 01/10/19 at 15:00 Acetaminophen (Tylenol Tab) 650 mg Q6H PRN PO .PAIN 1-3 OR TEMP Last administered on 01/13/19at 09:11; Admin Dose 650 MG; Start 01/10/19 at 15:00 Pantoprazole (Protonix Tab) 40 mg DAILY@06 PO Last administered on 01/22/19at 05:43; Admin Dose 40 MG; Start 01/11/19 at 06:00 Albuterol/ Ipratropium (Duoneb) 3 ml Q4H RESP THERAPY PRN HHN SHORTNESS OF BREATH; Start 01/10/19 at 15:00 Acetaminophen/ Hydrocodone Bitart ([place] (5/325)) 1 tab Q6H PRN PO MODERATE PAIN LEVEL 4-6 Last administered on 01/20/19at 20:41; Admin Dose 1 TAB; Start 01/13/19 at 04:00 KARINA CHAWLA MD Jan 22, 2019 16:44
[2019-01-22 19:33] VITALS: BP 154/85; PULSE 89; RESP 18
[2019-01-22] MEDS: HYDROCODONE/APAP (5/325) TAB PO PRN (21:29)
[2019-01-23 02:03] VITALS: BP 115/72; PULSE 86; RESP 18
[2019-01-23] MEDS: SOD CHLORIDE 0.9% 1,000 ML IV SCH ×3 (02:30→15:02)
[2019-01-23] MEDS: PANTOPRAZOLE (EC) 40 MG TAB PO SCH (05:56)
[2019-01-23 07:22] VITALS: BP 161/92; PULSE 82; RESP 18
[2019-01-23] MEDS ORDERED: POTASSIUM CHLORIDE 20 MEQ POWDER FOR ORAL SOLN PO ONE (08:30)
[2019-01-23] MEDS ORDERED: MAGNESIUM SULFATE 2 GM/50 ML 50 ML IVPB ONE (10:00)
[2019-01-23 13:07] VITALS: BP 164/93; PULSE 77; RESP 18
--- NOTE | 2019-01-23 13:47 | PN ---
Date/Time of Note Date/Time of Note DATE: 01/23/19 TIME: 13:44 Assessment/Plan VTE Prophylaxis Risk score (from Nsg)>0 risk: 2 SCD applied (from Ns): No SCD contraindicated: low risk/ambulating Pharmacological prophylaxis: NA/contraindicated Pharm contraindication: low risk/ambulating Lines/Catheters IV Catheter Type (from Nrs): Peripheral IV Urinary Cath still in place: No (condom catheter) Assessment/Plan Assessment/Plan 63 yo man presents in alcohol withdrawal. #Weakness - XR negative for bony problems; may have meniscal or ligament issues. - Continue PT - Also evaluated by psychiatric clinician; may have major depression. #EtOH withdrawal - We would expect withdrawal symptoms would have completely resolved by now, over a week since last drink. - Off benzos. #Macrocytosis- Not associated with anemia - Now folate and B12 replete. #Thrombocytopenia - Likely bone marrow suppression from alcohol use, but other cell lines not suppressed - Coarse liver on US, may have early cirrhosis. - Now resolved, has thrombocytosis. DVT: SCDs GI: None Dispo: Potential discharge to snf, case management order in place and they are looking for placement. In the meantime family is also interested in having patient go to appropriate support services like alcohol and substance abuse programs and facilities upon discharge and the social media marketing manager spoke with the family and provided them with resources on this. Result Diagram: 01/23/19 0437 01/23/19 0437 Subjective 24 Hr Interval Summary Free Text/Dictation No acute overnight events. Still with some difficulty walking, weakness. Otherwise awake and alert. Exam/Review of Systems Exam Vitals Vital Signs Date Temp Pulse Resp B/P (MAP) Pulse Ox O2 O2 Flow FiO2 Time Delivery Rate 01/23/19 98.4 77 18 164/93 94 13:07 (116) 01/21/19 Room Air 15:16 Intake and Output 01/22/19 01/22/19 01/23/19 1515:00 23:00 07:00 IntakeIntake Total 966 ml 360 ml 1160 ml OutputOutput Total 650 ml 1200 ml BalanceBalance 316 ml -840 ml 1160 ml Exam Gen: Fatigued man sitting up in chair, no acute distress. Eyes: PERRL, no icterus HEENT: No tongue fasciculations, clear oropharynx, moist mucous membranes Neck: Supple, no lymphadenopathy Card: Regular rate and rhythm, no murmurs Pulm: Clear to auscultation bilaterally Abd: Soft, nontender throughout, nondistended. No hepatosplenomegaly. Ext: No cyanosis/clubbing/edema Neuro: No hand tremor. Results Results 24hrs Laboratory Tests Test 01/23/19 04:37 White Blood Count 6.7 # Red Blood Count 3.52 L Hemoglobin 12.2 L Hematocrit 36.3 L Mean Corpuscular Volume 103.1 H Mean Corpuscular Hemoglobin 34.7 H Mean Corpuscular Hemoglobin Concent 33.6 Red Cell Distribution Width 12.3 Platelet Count 656 H Mean Platelet Volume 10.8 H Immature Granulocytes % 0.400 Neutrophils % 62.5 Lymphocytes % 22.2 Monocytes % 10.9 Eosinophils % 2.8 Basophils % 1.2 Nucleated Red Blood Cells % 0.0 Immature Granulocytes # 0.030 Neutrophils # 4.2 Lymphocytes # 1.5 Monocytes # 0.7 Eosinophils # 0.2 Basophils # 0.1 Nucleated Red Blood Cells # 0.0 Sodium Level 141 Potassium Level 3.3 L Chloride Level 109 Carbon Dioxide Level 25 Anion Gap 7 Blood Urea Nitrogen 5 L Creatinine 0.71 Est Glomerular Filtrat Rate mL/min > 60 Glucose Level 80 Calcium Level 9.5 Medications Medication Current Medications Sodium Chloride 1,000 ml @ 80 mls/hr [id number] IV Last administered on 01/23/19at 05:58; Admin Dose 80 MLS/HR; Start 01/10/19 at 14:32 IV Flush (NS 3 ml) 3 ml PER PROTOCOL IV ; Start 01/10/19 at 15:00 Ondansetron HCl (Zofran Inj) 4 mg Q6H PRN IV NAUSEA/VOMITING; Start 01/10/19 at 15:00 Acetaminophen (Tylenol Tab) 650 mg Q6H PRN PO .PAIN 1-3 OR TEMP Last administer ed on 01/13/19at 09:11; Admin Dose 650 MG; Start 01/10/19 at 15:00 Pantoprazole (Protonix Tab) 40 mg DAILY@06 PO Last administered on 01/23/19at 05:56; Admin Dose 40 MG; Start 01/11/19 at 06:00 Albuterol/ Ipratropium (Duoneb) 3 ml Q4H RESP THERAPY PRN HHN SHORTNESS OF BREATH; Start 01/10/19 at 15:00 Acetaminophen/ Hydrocodone Bitart ([place] ()) 1 tab Q6H PRN PO MODERATE PAIN LEVEL 4-6 Last administered on 01/22/19at 21:29; Admin Dose 1 TAB; Start 01/13/19 at 04:00 KARINA CHAWLA MD Jan 23, 2019 13:47
[2019-01-23 20:00] VITALS: BP 153/87; PULSE 99; RESP 18
[2019-01-23] MEDS: HYDROCODONE/APAP (5/325) TAB PO PRN (22:38)
[2019-01-24 02:00] VITALS: BP 110/69; PULSE 85; RESP 18
[2019-01-24] MEDS: SOD CHLORIDE 0.9% 1,000 ML IV SCH ×2 (03:32→16:07)
[2019-01-24] MEDS: PANTOPRAZOLE (EC) 40 MG TAB PO SCH (05:28)
[2019-01-24 07:29] VITALS: BP 148/85; PULSE 88; RESP 18
[2019-01-24] MEDS: HYDROCODONE/APAP (5/325) TAB PO PRN ×2 (09:18→22:13)
[2019-01-24 14:50] VITALS: BP 134/81; PULSE 98; RESP 18
--- NOTE | 2019-01-24 15:01 | PN ---
Date/Time of Note Date/Time of Note DATE: 01/24/19 TIME: 15:00 Assessment/Plan VTE Prophylaxis Risk score (from Nsg)>0 risk: 3 SCD applied (from Nsg): Yes Pharmacological prophylaxis: NA/contraindicated Pharm contraindication: low risk/ambulating Lines/Catheters IV Catheter Type (from Nrsg): Peripheral IV Urinary Cath still in place: No Assessment/Plan Assessment/Plan 63 yo man presents in alcohol withdrawal. #Weakness - XR negative for bony problems; may have meniscal or ligament issues. - Continue PT - Also evaluated by psych coordinator; may have major depression. #EtOH withdrawal - We would expect withdrawal symptoms would have completely resolved by now, o sergei a week since last drink. - Off benzos. #Macrocytosis- Not associated with anemia - Now folate and B12 replete. #Thrombocytopenia - Likely bone marrow suppression from alcohol use, but other cell lines not suppressed - Coarse liver on US, may have early cirrhosis. - Now resolved, has thrombocytosis. DVT: SCDs GI: None Dispo: Potential discharge to snf, case management order in place and they are looking for placement. In the meantime family is also interested in having patient go to appropriate support services like alcohol and substance abuse programs and facilities upon discharge and the health care social worker spoke with the family and provided them with resources on this. Result Diagram: 01/24/196 01/24/196 Subjective 24 Hr Interval Summary Free Text/Dictation No acute overnight events. Patient sitting comfortably in chair. Complains of an episode of shooting L leg pain, now resolved. Exam/Review of Systems Exam Vitals Vital Signs Date Temp Pulse Resp B/P (MAP) Pulse Ox O2 O2 Flow FiO2 Time Delivery Rate 01/24/19 98.7 98 18 134/81 5 14:50 (98) 01/21/19 Room Air 15:16 Intake and Output 01/23/19 01/23/19 01/24/19 1515:00 23:00 07:00 IntakeIntake Total 1420 ml 240 ml OutputOutput Total 600 ml 350 ml BalanceBalance 820 ml 240 ml -350 ml Exam Gen: Fatigued man sitting up in chair, no acute distress. Eyes: PERRL, no icterus HEENT: No tongue fasciculations, clear oropharynx, moist mucous membranes Neck: Supple, no lymphadenopathy Card: Regular rate and rhythm, no murmurs Pulm: Clear to auscultation bilaterally Abd: Soft, nontender throughout, nondistended. No hepatosplenomegaly. Ext: No cyanosis/clubbing/edema Neuro: No hand tremor. Results Results 24hrs Laboratory Tests Test 01/24/19 04:46 White Blood Count 6.9 Red Blood Count 3.56 L Hemoglobin 12.3 L Hematocrit 36.7 L Mean Corpuscular Volume 103.1 H Mean Corpuscular Hemoglobin 34.6 H Mean Corpuscular Hemoglobin Concent 33.5 Red Cell Distribution Width 12.3 Platelet Count 669 H Mean Platelet Volume 10.8 H Immature Granulocytes % 0.600 H Neutrophils % 59.1 Lymphocytes % 26.3 Monocytes % 10.2 Eosinophils % 2.6 Basophils % 1.2 Nucleated Red Blood Cells % 0.0 Immature Granulocytes # 0.040 H Neutrophils # 4.1 Lymphocytes # 1.8 Monocytes # 0.7 Eosinophils # 0.2 Basophils # 0.1 Nucleated Red Blood Cells # 0.0 Sodium Level 141 Potassium Level 3.5 Chloride Level 106 Carbon Dioxide Level 26 Anion Gap 9 Blood Urea Nitrogen 5 L Creatinine 0.73 Est Glomerular Filtrat Rate mL/min > 60 Glucose Level 92 Calcium Level 9.3 Phosphorus Level 3.5 Magnesium Level 1.4 L Medications Medication Current Medications Sodium Chloride 1,000 ml @ 80 mls/hr [id number] IV Last administered on 01/23/19at 05:58; Admin Dose 80 MLS/HR; Start 01/10/19 at 14:32 IV Flush (NS 3 ml) 3 ml PER PROTOCOL IV ; Start 01/10/19 at 15:00 Ondansetron HCl (Zofran Inj) 4 mg Q6H PRN IV NAUSEA/VOMITING; Start 01/10/19 at 15:00 Acetaminophen (Tylenol Tab) 650 mg Q6H PRN PO .PAIN 1-3 OR TEMP Last administered on 01/13/19at 09:11; Admin Dose 650 MG; Start 01/10/19 at 15:00 Pantoprazole (Protonix Tab) 40 mg DAILY@06 PO Last administered on 01/24/19at 05:28; Admin Dose 40 MG; Start 01/11/19 at 06:00 Albuterol/ Ipratropium (Duoneb) 3 ml Q4H RESP THERAPY PRN HHN SHORTNESS OF BREATH; Start 01/10/19 at 15:00 Acetaminophen/ Hydrocodone Bitart ([place] (5/)) 1 tab Q6H PRN PO MODERATE PAIN LEVEL 4-6 Last administered on 01/24/19at 09:18; Admin Dose 1 TAB; Start 01/13/19 at 04:00 KARINA CHAWLA MD Jan 24, 2019 15:01
[2019-01-24 20:00] VITALS: BP 154/97; PULSE 118; RESP 18
[2019-01-24] MEDS ORDERED: MAGNESIUM SULFATE 3 GM in DEXTROSE 5% 100 ML IVPB ONE (23:30)
[2019-01-25] MEDS: ACETAMINOPHEN 325 MG TAB PO PRN ×2 (00:39→14:07)
[2019-01-25 02:00] VITALS: BP 122/85; PULSE 85; RESP 18
[2019-01-25] MEDS: PANTOPRAZOLE (EC) 40 MG TAB PO SCH (05:46)
[2019-01-25 07:19] VITALS: BP 136/79; PULSE 106; RESP 16
[2019-01-25] MEDS: SOD CHLORIDE 0.9% 1,000 ML IV SCH ×3 (08:08→22:14)
--- NOTE | 2019-01-25 14:16 | PN ---
Date/Time of Note Date/Time of Note DATE: 01/25/19 TIME: 14:14 Assessment/Plan VTE Prophylaxis Risk score (from Nsg)>0 risk: 3 SCD applied (from Nsg): Yes Pharmacological prophylaxis: NA/contraindicated Pharm contraindication: low risk/ambulating Lines/Catheters IV Catheter Type (from Nrsg): Peripheral IV Urinary Cath still in place: No Assessment/Plan Assessment/Plan 63 yo man presents in alcohol withdrawal, now resolved. #Weakness - XR negative for bony problems; may have meniscal or ligament issues. - Continue PT - Also evaluated by preliminary school psychologist; may have major depression. #EtOH withdrawal - We would expect withdrawal symptoms would have completely resolved by now, over a week since last drink. - Off benzos. #Macrocytosis- Not associated with anemia - Now folate and B12 replete. #Thrombocytopenia - Likely bone marrow suppression from alcohol use, but other cell lines not suppressed - Coarse liver on US, may have early cirrhosis. - Now resolved, has thrombocytosis. DVT: SCDs GI: None Dispo: Medically clear for discharge to SNF, preferably with alcohol rehabilitation options. Result Diagram: 01/25/19 0433 01/25/19 0433 Subjective 24 Hr Interval Summary Free Text/Dictation No acute overnight events. Patient feeling well, no complaints. Exam/Review of Systems Exam Vitals Vital Signs Date Temp Pulse Resp B/P (MAP) Pulse Ox O2 O2 Flow FiO2 Time Delivery Rate 01/25/19 98.0 106 16 136/79 98 07:19 (98) 01/21/19 Room Air 15:16 Intake and Output 01/24/19 01/24/19 01/25/19 1515:00 23:00 07:00 IntakeIntake Total 160 ml 260 ml 906 ml OutputOutput Total 1500 ml 700 ml BalanceBalance 160 ml -1240 ml 206 ml Exam Gen: Fatigued man sitting up in chair, no acute distress. Eyes: PERRL, no icterus HEENT: No tongue fasciculations, clear oropharynx, moist mucous membranes Neck: Supple, no lymphadenopathy Card: Regular rate and rhythm, no murmurs Pulm: Clear to auscultation bilaterally Abd: Soft, nontender throughout, nondistended. No hepatosplenomegaly. Ext: No cyanosis/clubbing/edema Neuro: No hand tremor. Results Results 24hrs Laboratory Tests Test 01/25/19 04:33 White Blood Count 8.4 # Red Blood Count 3.78 L Hemoglobin 12.9 L Hematocrit 38.6 L Mean Corpuscular Volume 102.1 H Mean Corpuscular Hemoglobin 34.1 H Mean Corpuscular Hemoglobin Concent 33.4 Red Cell Distribution Width 12.6 Platelet Count 640 H Mean Platelet Volume 10.6 H Immature Granulocytes % 0.800 H Neutrophils % 60.5 Lymphocytes % 26.2 Monocytes % 9.4 Eosinophils % 2.1 Basophils % 1.0 Nucleated Red Blood Cells % 0.0 Immature Granulocytes # 0.070 H Neutrophils # 5.1 Lymphocytes # 2.2 Monocytes # 0.8 Eosinophils # 0.2 Basophils # 0.1 Nucleated Red Blood Cells # 0.0 Sodium Level 142 Potassium Level 3.5 Chloride Level 105 Carbon Dioxide Level 25 Anion Gap 12 Blood Urea Nitrogen 3 L Creatinine 0.80 Est Glomerular Filtrat Rate mL/min > 60 Glucose Level 92 Calcium Level 9.7 Magnesium Level 2.3 Medications Medication Current Medications Sodium Chloride 1,000 ml @ 80 mls/hr [id number] IV Last administered on 01/25/19at 08:08; Admin Dose 80 MLS/HR; Start 01/10/19 at 14:32 IV Flush (NS 3 ml) 3 ml PER PROTOCOL IV ; Start 01/10/19 at 15:00 Ondansetron HCl (Zofran Inj) 4 mg Q6H PRN IV NAUSEA/VOMITING; Start 01/10/19 at 15:00 Acetaminophen (Tylenol Tab) 650 mg Q6H PRN PO .PAIN 1-3 OR TEMP Last administered on 01/25/19at 14:07; Admin Dose 650 MG; Start 01/10/19 at 15:00 Pantoprazole (Protonix Tab) 40 mg DAILY@06 PO Last administered on 01/25/19at 05:46; Admin Dose 40 MG; Start 01/11/19 at 06:00 Albuterol/ Ipratropium (Duoneb) 3 ml Q4H RESP THERAPY PRN HHN SHORTNESS OF BREATH; Start 01/10/19 at 15:00 Acetaminophen/ Hydrocodone Bitart ([place] (5/325)) 1 tab Q6H PRN PO MODERATE PAIN LEVEL 4-6 Last administered on 01/24/19at 22:13; Admin Dose 1 TAB; Start 01/13/19 at 04:00 KARINA CHAWLA MD Jan 25, 2019 14:16
[2019-01-25 19:57] VITALS: BP 159/88; PULSE 100; RESP 18
[2019-01-25] MEDS: HYDROCODONE/APAP (5/325) TAB PO PRN (23:16)
[2019-01-26 02:25] VITALS: BP 154/90; PULSE 89; RESP 18
[2019-01-26] MEDS: PANTOPRAZOLE (EC) 40 MG TAB PO SCH (05:41)
[2019-01-26 07:30] VITALS: BP 161/100; PULSE 92; RESP 15
[2019-01-26] MEDS: ACETAMINOPHEN 325 MG TAB PO PRN (07:42)
[2019-01-26] MEDS: NICOTINE (21 MG/24 HR) PATCH TRANSDERM SCH (09:43)
[2019-01-26] MEDS: SOD CHLORIDE 0.9% 1,000 ML IV SCH (13:05)
[2019-01-26 14:00] VITALS: BP 129/79; PULSE 106; RESP 18
--- NOTE | 2019-01-26 15:39 | PN ---
Date/Time of Note Date/Time of Note DATE: 01/26/19 TIME: 15:37 Assessment/Plan VTE Prophylaxis Risk score (from Nsg)>0 risk: 2 SCD applied (from Nsg): Yes Pharmacological prophylaxis: NA/contraindicated Pharm contraindication: low risk/ambulating Lines/Catheters IV Catheter Type (from Nrsg): Peripheral IV Urinary Cath still in place: No Assessment/Plan Assessment/Plan 63 yo man presents in alcohol withdrawal, now resolved. #Weakness - XR negative for bony problems; may have meniscal or ligament issues. - Continue PT - Also evaluated by licensed psychologist manager; may have major depression. #EtOH withdrawal - resolved #Macrocytosis- Not associated with anemia - Now folate and B12 replete. #Thrombocytopenia -resolved - Likely bone marrow suppression from alcohol use, but other cell lines not suppressed - Coarse liver on US, may have early cirrhosis. DVT: SCDs GI: None Dispo: Medically clear for discharge to SNF, preferably with alcohol rehabilitation options. Result Diagram: 01/26/194 01/26/19433 Subjective 24 Hr Interval Summary Free Text/Dictation No acute overnight events. Patient doing well today. Exam/Review of Systems Exam Vitals Vital Signs Date Temp Pulse Resp B/P (MAP) Pulse Ox O2 O2 Flow FiO2 Time Delivery Rate 01/26/19 98.7 106 18 129/79 92 Room Air 14:00 (96) Intake and Output 01/25/19 01/25/19 01/26/19 1515:00 23:00 07:00 IntakeIntake Total 770 ml 1840 ml 880 ml OutputOutput Total 500 ml 650 ml 400 ml BalanceBalance 270 ml 1190 ml 480 ml Exam Gen: Fatigued man lying in bed. Eyes: PERRL, no icterus HEENT: No tongue fasciculations, clear oropharynx, moist mucous membranes Neck: Supple, no lymphadenopathy Card: Regular rate and rhythm, no murmurs Pulm: Clear to auscultation bilaterally Abd: Soft, nontender throughout, nondistended. No hepatosplenomegaly. Ext: No cyanosis/clubbing/edema Neuro: No hand tremor. Results Results 24hrs Laboratory Tests Test 01/26/19 04:34 White Blood Count 7.9 Red Blood Count 3.66 L Hemoglobin 12.6 L Hematocrit 37.4 L Mean Corpuscular Volume 102.2 H Mean Corpuscular Hemoglobin 34.4 H Mean Corpuscular Hemoglobin Concent 33.7 Red Cell Distribution Width 12.9 Platelet Count 605 H Mean Platelet Volume 10.8 H Immature Granulocytes % 0.500 H Neutrophils % 57.4 Lymphocytes % 28.4 Monocytes % 10.2 Eosinophils % 2.7 Basophils % 0.8 Nucleated Red Blood Cells % 0.0 Immature Granulocytes # 0.040 H Neutrophils # 4.5 Lymphocytes # 2.2 Monocytes # 0.8 Eosinophils # 0.2 Basophils # 0.1 Nucleated Red Blood Cells # 0.0 Sodium Level 142 Potassium Level 3.5 Chloride Level 110 Carbon Dioxide Level 25 Anion Gap 7 Blood Urea Nitrogen 5 L Creatinine 0.81 Est Glomerular Filtrat Rate mL/min > 60 Glucose Level 91 Calcium Level 9.7 Phosphorus Level 3.8 Magnesium Level 1.4 L Medications Medication Current Medications Sodium Chloride 1,000 ml @ 80 mls/hr [id number] IV Last administered on 01/26/19 13:05; Admin Dose 80 MLS/HR; Start 01/10/19 at 14:32 IV Flush (NS 3 ml) 3 ml PER PROTOCOL IV ; Start 01/10/19 at 15:00 Ondansetron HCl (Zofran Inj) 4 mg Q6H PRN IV NAUSEA/VOMITING; Start 01/10/19 at 15:00 Acetaminophen (Tylenol Tab) 650 mg Q6H PRN PO .PAIN 1-3 OR TEMP Last administered on 01/26/19at 07:42; Admin Dose 650 MG; Start 01/10/19 at 15:00 Pantoprazole (Protonix Tab) 40 mg DAILY@06 PO Last administered on 01/26/19at 05:41; Admin Dose 40 MG; Start 01/11/19 at 06:00 Albuterol/ Ipratropium (Duoneb) 3 ml Q4H RESP THERAPY PRN HHN SHORTNESS OF BREATH; Start 01/10/19 at 15:00 Acetaminophen/ Hydrocodone Bitart ([place] (5/325)) 1 tab Q6H PRN PO MODERATE PAIN LEVEL 4-6 Last administered on 01/25/19 23:16; Admin Dose 1 TAB; Start 01/13/19 at 04:00 Nicotine (Nicoderm 21 Mg/ 24hr) 1 patch DAILY TRANSDERM Last administered on 01/26/19at 09:43; Admin Dose 1 PATCH; Start 01/26/19 at 09:00 KARINA CHAWLA MD Jan 26, 2019 15:39
[2019-01-26 19:35] VITALS: BP 135/83; PULSE 113; RESP 18
[2019-01-26] MEDS: HYDROCODONE/APAP (5/325) TAB PO PRN (23:02)
[2019-01-27 01:51] VITALS: BP 140/80; PULSE 84; RESP 18
[2019-01-27] MEDS: ACETAMINOPHEN 325 MG TAB PO PRN ×2 (02:11→11:29)
[2019-01-27] MEDS: SOD CHLORIDE 0.9% 1,000 ML IV SCH ×3 (04:18→19:42)
[2019-01-27] MEDS: HYDROCODONE/APAP (5/325) TAB PO PRN ×2 (04:18→22:10)
[2019-01-27] MEDS: PANTOPRAZOLE (EC) 40 MG TAB PO SCH (06:20)
[2019-01-27 07:22] VITALS: BP 121/75; PULSE 102; RESP 18
[2019-01-27] MEDS: NICOTINE (21 MG/24 HR) PATCH TRANSDERM SCH (08:29)
[2019-01-27 13:51] VITALS: BP 144/86; PULSE 105; RESP 18
--- NOTE | 2019-01-27 15:31 | PN ---
Date/Time of Note Date/Time of Note DATE: 01/27/19 TIME: 15:27 Assessment/Plan VTE Prophylaxis Risk score (from Nsg)>0 risk: 2 SCD applied (from Nsg): Yes Pharmacological prophylaxis: other Lines/Catheters IV Catheter Type (from Nrsg): Peripheral IV Urinary Cath still in place: No Assessment/Plan Hospital Course S: Patient had no acute events overnight, worked with physical therapy earlier. O: VS - see below PE: Gen: lying in bed, no acute distress, smiles Eyes: PERRL, no icterus HEENT: No tongue fasciculations, clear oropharynx, moist mucous membranes Neck: Supple, no lymphadenopathy Card: Regular rate and rhythm, no murmurs Pulm: Clear to auscultation bilaterally Abd: Soft, nontender throughout, nondistended. No hepatosplenomegaly. Ext: No cyanosis/clubbing/edema Neuro: No focal deficits Assessment/Plan: 63 yo man presents in alcohol withdrawal, now resolved. #Weakness- XR negative for bony problems; may have meniscal or ligament issues. - Continue PT - Also evaluated by psychiatric attendant; may have major depression -now the patient is more awake and alert we will start Lexapro as recommended by them a few days ago per #EtOH withdrawal - resolved -monitor #Macrocytosis- Not associated with anemia- Now folate and B12 replete. -Monitor #Thrombocytopenia -resolved- Likely bone marrow suppression from alcohol use, but other cell lines not suppressed- Coarse liver on US, may have early cirrhosis. -Monitor DVT: SCDs GI: None Dispo: Medically clear for discharge to SNF, preferably with alcohol rehabilitation options -Case management working on facilities presently.. Result Diagram: 01/26/19 0434 01/26/19 0434 Exam/Review of Systems Exam Vitals Vital Signs Date Temp Pulse Resp B/P (MAP) Pulse Ox O2 O2 Flow FiO2 Time Delivery Rate 01/27/19 98.8 105 18 144/86 93 13:51 (105) 01/26/19 Room Air 14:00 Intake and Output 01/26/19 01/26/19 01/27/19 1515:00 23:00 07:00 IntakeIntake Total 960 ml 240 ml 1480 ml OutputOutput Total 500 ml 100 ml 1100 ml BalanceBalance 460 ml 140 ml 380 ml Medications Medication Current Medications Sodium Chloride 1,000 ml @ 80 mls/hr [id number] IV Last administered on 01/27/19 04:18; Admin Dose 80 MLS/HR; Start 01/10/19 at 14:32 IV Flush (NS 3 ml) 3 ml PER PROTOCOL IV ; Start 01/10/19 at 15:00 Ondansetron HCl (Zofran Inj) 4 mg Q6H PRN IV NAUSEA/VOMITING; Start 01/10/19 at 15:00 Acetaminophen (Tylenol Tab) 650 mg Q6H PRN PO .PAIN 1-3 OR TEMP Last administered on 01/27/19 11:29; Admin Dose 650 MG; Start 01/10/19 at 15:00 Pantoprazole (Protonix Tab) 40 mg DAILY@06 PO Last administered on 01/27/19 06:20; Admin Dose 40 MG; Start 01/11/19 at 06:00 Albuterol/ Ipratropium (Duoneb) 3 ml Q4H RESP THERAPY PRN HHN SHORTNESS OF BREATH; Start 01/10/19 at 15:00 Acetaminophen/ Hydrocodone Bitart ([place] (5/325)) 1 tab Q6H PRN PO MODERATE PAIN LEVEL 4-6 Last administered on 01/27/19 04:18; Admin Dose 1 TAB; Start 01/13/19 at 04:00 Nicotine (Nicoderm 21 Mg/ 24hr) 1 patch DAILY TRANSDERM Last administered on 01/27/19 08:29; Admin Dose 1 PATCH; Start 01/26/19 at 09:00 ANGELITA ANGULO Jan 27, 2019 15:31
[2019-01-27] MEDS: ESCITALOPRAM 10 MG TAB PO SCH (16:00)
[2019-01-27 19:55] VITALS: BP 135/80; PULSE 96; RESP 18
[2019-01-28 01:59] VITALS: BP 139/89; PULSE 86; RESP 18
[2019-01-28] MEDS: HYDROCODONE/APAP (5/325) TAB PO PRN ×2 (03:51→22:43)
[2019-01-28] MEDS: PANTOPRAZOLE (EC) 40 MG TAB PO SCH (06:22)
[2019-01-28 07:28] VITALS: BP 148/92; PULSE 87; RESP 20
[2019-01-28] MEDS: ACETAMINOPHEN 325 MG TAB PO PRN ×2 (07:44→16:25)
[2019-01-28] MEDS: SOD CHLORIDE 0.9% 1,000 ML IV SCH ×2 (07:46→20:02)
[2019-01-28] MEDS: ESCITALOPRAM 10 MG TAB PO SCH (08:23)
[2019-01-28] MEDS: NICOTINE (21 MG/24 HR) PATCH TRANSDERM SCH (08:23)
--- NOTE | 2019-01-28 11:38 | PDOCDIS ---
Discharge Instructions CONDITION [id number] Patient Condition: [id number] Stable ANGELITA ANGULO Jan 28, 2019 11:38
--- NOTE | 2019-01-28 11:43 | DS ---
Date/Time of Note Date/Time of Note DATE: 01/28/19 TIME: 11:39 Discharge Summary Admission/Discharge Info Admit Date/Time Jan 10, 2019 at 13:38 Discharge Date/Time Discharge Diagnosis #EtOH withdrawal - resolved #Weakness- XR negative for bony problems; may have meniscal or ligament issues. #Macrocytosis- Not associated with anemia #Thrombocytopenia -resolved- Likely bone marrow suppression from alcohol use #Major depression Patient Condition: Stable Hx of Present Illness 63 yo man brought in to the ED for tremors and visual hallucinations. Patient is Yi speaking but hard to understand and there is no family to provide collateral; so history is limited. He was in his usual state of health until about 3 days ago, when he completely quit drinking. Unclear how much he was drinking prior. For past few days he's had tremors and visual hallu cinations. Apparently he has been tripping and falling on a more regular basis. He is unsure if he hit his head recently. He also does report some shortness of breath and possible history of COPD. In the ED he was tachy to 140s, normal sinus. BP 154/93, breathing comfortably room air. Labs notable for thrombocytopenia to 42 and macrocytosis, MCV 102, but no anemia. CXR showed possible R 8th rib fracture, CTH negative. Hospital Course Patient was admitted to medical surgical unit and started on medications for alcohol withdrawal including IV fluids, benzodiazepines, banana bag. Patient was also evaluated by psychiatry team given emotional labile and social issues occurring at home including recent family member . Patient was diagnosed with depression and started on antidepressant for that close to the day of discharge. Over the course of his hospital stay his altered mental status symptoms improved, patient was able to ambulate with assistance from the physical therapist, he was able to tolerate p.o. diet and vital signs were stable and he detoxified successfully from alcohol intoxication. Patient has be en accepted to [facility] facility today and will be discharged there today in improved condition. See medicine reconciliation sheet for full list of discharge medications. Home Meds Reported Medications Ibuprofen/Diphenhydramine Cit (Advil Pm Caplet) 1 Each Tablet, 2 EACH PO QHS, TAB 01/10/19 Primary Care Provider Care Physician No Primary Time spent on discharge: > 30 minutes Pending Labs Laboratory Tests Test 01/28/19 07:13 Phosphorus Level 3.6 mg/dl (2.5-4.9) Magnesium Level 1.2 mg/dl (1.7-2.5) ANGELITA ANGULO Jan 28, 2019 11:43
[2019-01-28] MEDS ORDERED: MAGNESIUM SULFATE 4 GM/100 ML 100 ML IVPB ONE (12:00)
[2019-01-28 13:34] VITALS: BP 154/80; PULSE 99; RESP 20
[2019-01-28 20:03] VITALS: BP_SYST 14; BP_SYST 141; BP_DIAS 90; PULSE 90; RESP 19
[2019-01-29] VITALS (7 sets, daily range): BP systolic 137–165; BP diastolic 67–100; PULSE 68–93; RESP 16–18
[2019-01-29] MEDS: SOD CHLORIDE 0.9% 1,000 ML IV SCH ×4 (02:11→21:02)
[2019-01-29] MEDS: PANTOPRAZOLE (EC) 40 MG TAB PO SCH (05:17)
[2019-01-29] MEDS: HYDROCODONE/APAP (5/325) TAB PO PRN ×4 (05:17→22:58)
[2019-01-29] MEDS: ESCITALOPRAM 10 MG TAB PO SCH (09:13)
[2019-01-29] MEDS: NICOTINE (21 MG/24 HR) PATCH TRANSDERM SCH (09:14)
--- NOTE | 2019-01-29 14:33 | PN ---
Date/Time of Note Date/Time of Note DATE: 01/29/19 TIME: 14:31 Assessment/Plan VTE Prophylaxis Risk score (from Nsg)>0 risk: 2 SCD applied (from Nsg): Yes Pharmacological prophylaxis: other Lines/Catheters IV Catheter Type (from Nrsg): Peripheral IV Urinary Cath still in place: No Assessment/Plan Hospital Course S: Patient not able to be discharged to SNF yesterday because this was not improved financially by his insurance company. Patient ambulated today working with PT, complaining of some left posterior thigh pain. O: VS - see below PE: Gen: lying in bed, no acute distress, alert Eyes: PERRL, no icterus HEENT: No tongue fasciculations, clear oropharynx, moist mucous membranes Neck: Supple, no lymphadenopathy Card: Regular rate and rhythm, no murmurs Pulm: Clear to auscultation bilaterally Abd: Soft, nontender throughout, nondistended. No hepatosplenomegaly. Ext: No cyanosis/clubbing/edema, no swelling noted bilaterally Neuro: No focal deficits Assessment/Plan: 63 yo man presents in alcohol withdrawal, now resolved. #Weakness- XR negative for bony problems; may have meniscal or ligament issues. - Continue PT -For the depression, continue Lexapro -We will check bilateral lower extremity Doppler study to rule out DVT given leg pain issues #EtOH withdrawal - resolved -monitor #Macrocytosis- Not associated with anemia- Now folate and B12 replete. -Monitor #Thrombocytopenia -resolved- Likely bone marrow suppression from alcohol use, but other cell lines not suppressed- Coarse liver on US, may have early cirrhosis. -Monitor DVT: SCDs GI: None Dispo: Medically clear for discharge to SNF, preferably with alcohol rehabilit ation options -Case management working on facilities presently. Result Diagram: 01/26/19 0434 01/26/19 0434 Exam/Review of Systems Exam Vitals Vital Signs Date Temp Pulse Resp B/P (MAP) Pulse Ox O2 O2 Flow FiO2 Time Delivery Rate 01/29/19 98.8 90 18 153/93 95 Room Air 13:59 (113) Intake and Output 01/28/19 01/28/19 01/29/19 1515:00 23:00 07:00 IntakeIntake Total 1400 ml 940 ml 1120 ml OutputOutput Total 400 ml 600 ml 400 ml BalanceBalance 1000 ml 340 ml 720 ml Medications Medication Current Medications Sodium Chloride 1,000 ml @ 80 mls/hr [id number] IV Last administered on 01/29/19 02:11; Admin Dose 80 MLS/HR; Start 01/10/19 at 14:32 IV Flush (NS 3 ml) 3 ml PER PROTOCOL IV ; Start 01/10/19 at 15:00 Ondansetron HCl (Zofran Inj) 4 mg Q6H PRN IV NAUSEA/VOMITING; Start 01/10/19 at 15:00 Acetaminophen (Tylenol Tab) 650 mg Q6H PRN PO .PAIN 1-3 OR TEMP Last administered on 01/28/19 16:25; Admin Dose 650 MG; Start 01/10/19 at 15:00 Pantoprazole (Protonix Tab) 40 mg DAILY@06 PO Last administered on 01/29/19 05:17; Admin Dose 40 MG; Start 01/11/19 at 06:00 Albuterol/ Ipratropium (Duoneb) 3 ml Q4H RESP THERAPY PRN HHN SHORTNESS OF BREATH; Start 01/10/19 at 15:00 Acetaminophen/ Hydrocodone Bitart ([place] (5/325)) 1 tab Q6H PRN PO MODERATE PAIN LEVEL 4-6 Last administered on 01/29/19 10:42; Admin Dose 1 TAB; Start 01/13/19 at 04:00 Nicotine (Nicoderm 21 Mg/ 24hr) 1 patch DAILY TRANSDERM Last administered on 01/29/19 09:14; Admin Dose 1 PATCH; Start 01/26/19 at 09:00 Escitalopram Oxalate (Lexapro) 10 mg DAILY PO Last administered on 01/29/19 09:13; Admin Dose 10 MG; Start 01/27/19 at 15:30 ANGELITA ANGULO Jan 29, 2019 14:33
[2019-01-29] MEDS: ACETAMINOPHEN 325 MG TAB PO PRN (21:42)
[2019-01-29] MEDS ORDERED: NITROGLYCERIN (SL) 0.4 MG TAB SL PRN (23:00)
[2019-01-30 02:00] VITALS: BP 151/91; PULSE 86; RESP 18
[2019-01-30] MEDS: SOD CHLORIDE 0.9% 1,000 ML IV SCH ×3 (04:22→16:46)
[2019-01-30] MEDS: HYDROCODONE/APAP (5/325) TAB PO PRN ×6 (04:28→23:14)
[2019-01-30] MEDS: PANTOPRAZOLE (EC) 40 MG TAB PO SCH (06:01)
[2019-01-30 08:10] VITALS: BP 134/85; PULSE 104; RESP 18
[2019-01-30] MEDS: ESCITALOPRAM 10 MG TAB PO SCH (08:44)
[2019-01-30] MEDS: NICOTINE (21 MG/24 HR) PATCH TRANSDERM SCH (08:44)
--- NOTE | 2019-01-30 10:07 | DS ---
Date/Time of Note Date/Time of Note DATE: 01/30/19 TIME: 10:06 Discharge Summary Admission/Discharge Info Admit Date/Time Jan 10, 2019 at 13:38 Discharge Date/Time Discharge Diagnosis #EtOH withdrawal - resolved #Weakness- XR negative for bony problems; may have meniscal or ligament issues. #Macrocytosis- Not associated with anemia #Thrombocytopenia -resolved- Likely bone marrow suppression from alcohol use #Major depression -now on Lexapro Patient Condition: Stable Hx of Present Illness 63 yo man brought in to the ED for tremors and visual hallucinations. Patient is Chinese speaking but hard to understand and there is no family to provide collateral; so history is limited. He was in his usual state of health until about 3 days ago, when he completely quit drinking. Unclear how much he was drinking prior. For past few days he's had tremors and visual hallucinations. Apparently he has been tripping and falling on a more regular basis. He is unsure if he hit his head recently. He also does report some shortness of breath and possible history of COPD. In the ED he was tachy to 140s, normal sinus. BP 154/93, breathing comfortably room air. Labs notable for thrombocytopenia to 42 and macrocytosis, MCV 102, but no anemia. CXR showed possible R 8th rib fracture, CTH negative. Hospital Course Patient was admitted to medical surgical unit and started on medications for alcohol withdrawal including IV fluids, benzodiazepines, banana bag. Patient was also evaluated by psychiatry team given emotional labile and social issues occurring at home including recent family member . Patient was diagnosed with depression and started on antidepressant for that close to the day of discharge. Over the course of his hospital stay his altered mental status symptoms improved, patient was able to ambulate with assistance from the physical therapist, he was able to tolerate p.o. diet and vital signs were stable and he detoxified successfully from alcohol intoxication. Patient has been accepted to snf facility today and will likely be discharged there today in improved condition once the insurance issues are sorted out. See medicine reconciliation sheet for full list of discharge medications. Home Meds Reported Medications Ibuprofen/Diphenhydramine Cit (Advil Pm Caplet) 1 Each Tablet, 2 EACH PO QHS, TAB 01/10/19 Primary Care Provider Care Physician No Primary Time spent on discharge: > 30 minutes ANGELITA ANGULO Jan 30, 2019 10:07
[2019-01-30 14:55] VITALS: BP 156/86; PULSE 102; RESP 18
[2019-01-30] MEDS: ACETAMINOPHEN 325 MG TAB PO PRN (15:26)
--- NOTE | 2019-01-30 15:53 | RADRPT ---
Vent Rate: 90 bpm RR Interval: 0 msec CA Interval: 166 msec QRS Duration: 90 msec QT Interval: 378 msec QTC Interval: 462 msec P-R-T [place]: 72 - 72 - 52 degrees Normal sinus rhythm Prolonged QT Abnormal ECG Electronically Signed By: Tre Tang
[2019-01-30 19:32] VITALS: BP 159/95; PULSE 96; RESP 16
[2019-01-31 01:35] VITALS: BP 155/89; PULSE 89; RESP 17
[2019-01-31] MEDS: HYDROCODONE/APAP (5/325) TAB PO PRN ×3 (05:36→21:41)
[2019-01-31] MEDS: SOD CHLORIDE 0.9% 1,000 ML IV SCH (05:36)
[2019-01-31] MEDS: PANTOPRAZOLE (EC) 40 MG TAB PO SCH (05:36)
[2019-01-31 07:27] VITALS: BP 129/81; PULSE 99; RESP 18
[2019-01-31] MEDS: ESCITALOPRAM 10 MG TAB PO SCH (09:37)
[2019-01-31] MEDS: NICOTINE (21 MG/24 HR) PATCH TRANSDERM SCH (09:37)
[2019-01-31 11:11] VITALS: BP 147/89; PULSE 109; RESP 16
--- NOTE | 2019-01-31 12:21 | PN ---
Date/Time of Note Date/Time of Note DATE: 01/31/19 TIME: 12:09 Assessment/Plan VTE Prophylaxis Risk score (from Nsg)>0 risk: 2 SCD applied (from Nsg): Yes Pharmacological prophylaxis: other Lines/Catheters IV Catheter Type (from Nrsg): Peripheral IV Urinary Cath still in place: No Assessment/Plan Hospital Course S: Patient not able to be discharged to SNF yesterday again because this was not improved financially by his insurance company. O: VS - see below PE: Gen: lying in bed, no acute distress, alert Eyes: PERRL, no icterus HEENT: No tongue fasciculations, clear oropharynx, moist mucous membranes Neck: Supple, no lymphadenopathy Card: Regular rate and rhythm, no murmurs Pulm: Clear to auscultation bilaterally Abd: Soft, nontender throughout, nondistended. No hepatosplenomegaly. Ext: No cyanosis/clubbing/edema, no swelling noted bilaterally Neuro: No focal deficits Assessment/Plan: 63 yo man presents in alcohol withdrawal, now resolved. #Generalized weakness- XR negative for bony problems; may have meniscal or ligament issues. However patient did complain of some left arm numbness earlier today but appears to have no focal deficits. - Continue PT, we will go ahead and get head CT to rule out any potential TIA versus stroke -For the depression, continue Lexapro #EtOH withdrawal - resolved -monitor #Macrocytosis- Not associated with anemia- Now folate and B12 replete. -Monitor #Thrombocytopenia -resolved- Likely bone marrow suppression from alcohol use, but other cell lines not suppressed- Coarse liver on US, may have early cirrhosis. -Monitor DVT: SCDs GI: None Dispo: Medically clear for discharge to SNF, preferably with alcohol rehabi litation options -Case management working on facilities presently. Exam/Review of Systems Exam Vitals Vital Signs Date Temp Pulse Resp B/P (MAP) Pulse Ox O2 O2 Flow FiO2 Time Delivery Rate 01/31/19 99.2 109 16 147/89 94 Room Air 11:11 (108) Intake and Output 01/30/19 01/30/19 01/31/19 1515:00 23:00 07:00 IntakeIntake Total 1320 ml 840 ml 1000 ml OutputOutput Total 500 ml 450 ml 700 ml BalanceBalance 820 ml 390 ml 300 ml Medications Medication Current Medications Sodium Chloride 1,000 ml @ 80 mls/hr [id number] IV Last administered on 01/31/19 05:36; Admin Dose 80 MLS/HR; Start 01/10/19 at 14:32 IV Flush (NS 3 ml) 3 ml PER PROTOCOL IV ; Start 01/10/19 at 15:00 Ondansetron HCl (Zofran Inj) 4 mg Q6H PRN IV NAUSEA/VOMITING; Start 01/10/19 at 15:00 Acetaminophen (Tylenol Tab) 650 mg Q6H PRN PO .PAIN 1-3 OR TEMP Last administered on 01/30/19 15:26; Admin Dose 650 MG; Start 01/10/19 at 15:00 Pantoprazole (Protonix Tab) 40 mg DAILY@06 PO Last administered on 01/31/19 05:36; Admin Dose 40 MG; Start 01/11/19 at 06:00 Albuterol/ Ipratropium (Duoneb) 3 ml Q4H RESP THERAPY PRN HHN SHORTNESS OF BREATH; Start 01/10/19 at 15:00 Nicotine (Nicoderm 21 Mg/ 24hr) 1 patch DAILY TRANSDERM Last administered on 01/31/19 09:37; Admin Dose 1 PATCH; Start 01/26/19 at 09:00 Escitalopram Oxalate (Lexapro) 10 mg DAILY PO Last administered on 01/31/19 09:37; Admin Dose 10 MG; Start 01/27/19 at 15:30 Acetaminophen/ Hydrocodone Bitart ([place] (5/325)) 1 tab Q4H PRN PO MODERATE PAIN LEVEL 4-6 Last administered on 01/31/19 05:36; Admin Dose 1 TAB; Start 01/29/19 at 23:00 Nitroglycerin (Nitroglycerin (Sl Tab) 0.4 Mg) 1 tab Q5M PRN SL ANGINA Last administered on 01/29/19 22:48; Admin Dose 1 TAB; Start 01/29/19 at 23:00 ANGELITA ANGULO Jan 31, 2019 12:19
[2019-01-31 13:54] VITALS: BP 155/88; PULSE 109; RESP 17
[2019-01-31 18:23] VITALS: BP 141/94; PULSE 100; RESP 18
[2019-01-31 19:26] VITALS: BP 143/87; PULSE 89; RESP 16
--- NOTE | 2019-02-01 10:09 | DS ---
Date/Time of Note Date/Time of Note DATE: 02/01/19 TIME: 10:08 Discharge Summary Admission/Discharge Info Admit Date/Time Jan 10, 2019 at 13:38 Discharge Date/Time Jan 31, 2019 at 21:50 Discharge Diagnosis #EtOH withdrawal - resolved #Weakness- XR negative for bony problems; may have meniscal or ligament issues. #Macrocytosis- Not associated with anemia #Thrombocytopenia -resolved- Likely bone marrow suppression from alcohol use #Major depression -now on Lexapro Patient Condition: Stable Hx of Present Illness 63 yo man brought in to the ED for tremors and visual hallucinations. Patient is Sami speaking but hard to understand and there is no family to provide collateral; so history is limited. He was in his usual state of health until about 3 days ago, when he completely quit drinking. Unclear how much he was drinking prior. For past few days he's had tremors and visual hallucinations. Apparently he has been tripping and falling on a more regular basis. He is unsure if he hit his head recently. He also does report some shortness of breath and possible history of COPD. In the ED he was tachy to 140s, normal sinus. BP 154/93, breathing comfortably room air. Labs notable for thrombocytopenia to 42 and macrocytosis, MCV 102, but no anemia. CXR showed possible R 8th rib fracture, CTH negative. Hospital Course Patient was admitted to medical surgical unit and started on medications for alcohol withdrawal including IV fluids, benzodiazepines, banana bag. Patient was also evaluated by psychiatry team given emotional labile and social issues occurring at home including recent family member . Patient was diagnosed with depression and started on antidepressant for that close to the day of discharge. Over the course of his hospital stay his altered mental status symptoms improved, patient was able to ambulate with assistance from the physical therapist, he was able to tolerate p.o. diet and vital signs were stable and he detoxified successfully from alcohol intoxication. He had some left knee pain and x-ray was performed that did not show any acute findings including no fractures. There was also some signs of some left-sided weakness and numbness symptoms on the day of discharge, but head CT did not show any acute findings and symptoms resolved. Patient has been accepted to [facility] facility today and will likely be discharged there today in improved condition once the insurance issues are sorted out. See medicine reconciliation sheet for full list of discharge medications. Home Meds Discontinued Reported Medications Ibuprofen/Diphenhydramine Cit (Advil Pm Caplet) 1 Each Tablet, 2 EACH PO QHS, TAB 01/10/19 Primary Care Provider Care Physician No Primary Time spent on discharge: > 30 minutes ANGELITA ANGULO Feb 01, 2019 10:09
== END 2019-01-31 21:50 | DRG 897 ==
LOC: E/R 10:44 → TEL 13:38 → EDBEDREQSVC 14:30 → TEL 01-11 03:14 → UNDOADMIN 01-11 03:14 → EDBEDREQSVC 01-11 03:21 → E/R 01-11 05:00 → TEL 01-12 12:10 → 2NE 01-13 19:50 → TEL 01-13 19:50 → 2NE 01-14 20:25
PROVIDERS: ADMIT Family Medicine; ATTEND Hospitalist
DX: F10.239 Alcohol dependence with withdrawal, unspecified (principal); S22.31XA Fracture of one rib, right side, initial encounter for closed fracture; R44.3 Hallucinations, unspecified; D69.6 Thrombocytopenia, unspecified; D75.89 Other specified diseases of blood and blood-forming organs; F32.9 Major depressive disorder, single episode, unspecified; N28.9 Disorder of kidney and ureter, unspecified; E86.0 Dehydration; R53.1 Weakness; D64.9 Anemia, unspecified; R25.1 Tremor, unspecified
CPT/HCPCS: 36415; 70450; 71045; 73560; 73562; 76705; 80048; 80053; 80307; 81001; 82607; 82746; 82962; 83036; 83735; 84100; 84443; 85025; 85610; 85730; 87086; 93005; 93970; 96361; 96365; 96375; 96376; 97110; 97116; 97162; 97530; J1630; J2060; J3360; J3411; J3475; J7030; J7050